=== PATIENT | male | born 1950 | race Caucasian/White ===

== ENCOUNTER 2018-01-24 18:50 | Inpatient (IN) | END 2018-03-03 13:50 | DRG 853 ==

== ENCOUNTER → 2018-09-27 | Outpatient (CLI) | payer MEDICARE ==
[~2018-09-27] MED LIST: APIX5TAB PO; FURO20TA3 PO
--- NOTE | 2018-09-28 20:00 | RADRPT ---
Vent Rate: 83 bpm RR Interval: 0 msec [place] Interval: 150 msec QRS Duration: 132 msec QT Interval: 420 msec QTC Interval: 493 msec P-R-T [place]: 36 - -2 - 49 degrees Normal sinus rhythm Right bundle branch block Abnormal ECG Electronically Signed By: Wade Aponte [id number]
== END | disposition home or self-care (01) ==
LOC: EKG 09:59
PROVIDERS: ATTEND Internal Medicine Hematology & Oncology
DX: C18.9 Malignant neoplasm of colon, unspecified (principal)
CPT/HCPCS: 71046; 93005

== ENCOUNTER 2019-02-24 12:49 | Inpatient (IN) | payer MEDICARE ==
[~2019-02-24] VITALS: Ht 160 cm; Wt 52.6 kg
[2019-02-24] MEDS ORDERED: SOD CHLORIDE 0.9% IV ONE (14:00)
[2019-02-24] MEDS ORDERED: APIX5TAB PO (14:49)
[2019-02-24] MEDS ORDERED: MORP60TA37 PO (15:01)
[2019-02-24] MEDS ORDERED: TRAZ-111 PO (15:02)
--- NOTE | 2019-02-24 15:38 | ERD ---
ER Documentation Chief Complaint Chief Complaint sob, n/v x 1 week; body pain. HPI 68-year-old male with a history of metastatic colon cancer status post recent treatment for bacteremia with left upper extremity PICC line presenting with complaints of shortness of breath for the past 1 week. He has also had associated URI symptoms with sore throat and raspy voice. He denies any fevers but he has been having chills. His shortness of breath is significantly worse with exertion. No chest pain associated with his symptoms. No cough. No hemoptysis. Denies any nausea or vomiting but does state he has had poor p.o. intake and feels dehydrated. Denies any abdominal pain at this time. ROS All systems reviewed and are negative except as per history of present illness. Medications Home Meds Reported Medications Trazodone Hcl* (Trazodone Hcl*) 50 Mg Tablet, 50 MG PO QHS, #30 TAB 02/24/19 Morphine Sulfate* (Ms Contin*) 60 Mg Tablet.sa, 60 MG PO Q8 PRN for PAIN, TAB.SA 02/24/19 Apixaban* (Eliquis*) 5 Mg Tablet, 5 MG PO BID, TAB 02/24/19 Discontinued Scripts Furosemide* (Furosemide*) 20 Mg Tablet, 20 MG PO DAILY for 14 Days, #14 TAB Prov:JADEN MADDEN MD 03/03/18 Apixaban* (Eliquis*) 5 Mg Tablet, 5 MG PO BID for 60 Days, #120 TAB Prov:JADEN MADDEN MD 03/03/18 Allergies Allergies: Coded Allergies: Penicillins (Verified Allergy, Unknown, RASH HIVES, 02/24/19) PMhx/Soc Medical and Surgical Hx: pt denies Surgical Hx History of Surgery: Yes (colon-rectial ca., Ileostomy ) Anesthesia Reaction: No Hx Neurological Disorder: No Hx Respiratory Disorders: No Hx Cardiac Disorders: No Hx Psychiatric Problems: No Hx Miscellaneous Medical Probl: Yes (Metastatic colon cancer) Hx Alcohol Use: No Hx Substance Use: Yes Hx Tobacco Use: No Smoking Status: Never smoker FmHx Family History: No diabetes Physical Exam Vitals Vital Signs Date Temp Pulse Resp B/P (MAP) Pulse Ox O2 O2 Flow FiO2 Time Delivery Rate 02/24/19 72 14 115/77 99 Room Air 16:33 (90) 02/24/19 97.2 119 20 98/53 68 98 13:13 Physical Exam Const: Chronically ill-appearing, cachectic Head: Atraumatic Eyes: Normal Conjunctiva ENT: Dry mucous membranes. Posterior oropharynx normal without erythema or exudate. Normal External Ears, Nose and Mouth. Neck: Full range of motion. No meningismus. Resp: Clear to auscultation bilaterally Cardio: Regular rate and rhythm, no murmurs Abd: Soft, non tender, non distended. Normal bowel sounds Skin: No petechiae or rashes Back: No midline or flank tenderness Ext: No cyanosis, or edema. Left upper extremity with PICC line in place, dressing clean dry and intact. Neur: Awake and alert Psych: Normal Mood and Affect Result Diagram: 02/24/19 1437 02/24/19 1437 Results 24 hrs Laboratory Tests Test 02/24/19 14:37 02/24/19 14:40 White Blood Count 5.7 10^3/ul Red Blood Count 5.09 10^6/ul Hemoglobin 15.1 g/dl Hematocrit 43.8 % Mean Corpuscular Volume 86.1 fl Mean Corpuscular Hemoglobin 29.7 pg Mean Corpuscular Hemoglobin Concent 34.5 g/dl Red Cell Distribution Width 15.5 % Platelet Count 264 10^3/UL Mean Platelet Volume 8.8 fl Immature Granulocytes % 0.500 % Neutrophils % 71.9 % Lymphocytes % 8.9 % Monocytes % 17.5 % Eosinophils % 0.9 % Basophils % 0.3 % Nucleated Red Blood Cells % 0.0 /100WBC Immature Granulocytes # 0.030 10^3/ul Neutrophils # 4.1 10^3/ul Lymphocytes # 0.5 10^3/ul Monocytes # 1.0 10^3/ul Eosinophils # 0.1 10^3/ul Basophils # 0.0 10^3/ul Nucleated Red Blood Cells # 0.0 10^3/ul Sodium Level 133 mmol/L Potassium Level 4.3 mmol/L Chloride Level 93 mmol/L Carbon Dioxide Level 22 mmol/L Anion Gap 18 Blood Urea Nitrogen 104 mg/dl Creatinine 3.73 mg/dl Est Glomerular Filtrat Rate mL/min 16 mL/min Glucose Level 128 mg/dl Calcium Level 9.9 mg/dl Total Bilirubin 0.5 mg/dl Direct Bilirubin 0.00 mg/dl Indirect Bilirubin 0.5 mg/dl Aspartate Amino Transf (AST/SGOT) 29 IU/L Alanine Aminotransferase (ALT/SGPT) 20 IU/L Alkaline Phosphatase 163 IU/L Troponin I < 0.012 ng/ml B-Type Natriuretic Peptide 302 PG/ML Total Protein 9.0 g/dl Albumin 4.9 g/dl Globulin 4.10 g/dl Albumin/Globulin Ratio 1.19 POC Venous Lactate 1.1 mmol/L Current Medications Medications Dose Sig/Braulio Start Time Status Last (Trade) Ordered Route PRN Stop Time Admin Dose Reason Admin Sodium 1,540 ml @ BOLUS X1 02/24/19 DC 02/24/19 Chloride 770 mls/hr ONCE IV 14:00 14:43 02/24/19 15:59 IV Flush 3 ml PER 02/24/19 (NS 3 ml) PROTOCOL IV 16:30 Ondansetron 4 mg Q6H PRN 02/24/19 HCl (Zofran IV 16:30 Inj) NAUSEA/VOMITI NG 650 mg Q6H PRN 02/24/19 Acetaminophen PO .PAIN 1-3 16:30 (Tylenol OR TEMP Tab) 1 tab Q6H PRN 02/24/19 Acetaminophen PO .MOD PAIN 16:30 / 4-6 Hydrocodone Bitart ([place] (5/325)) Morphine 2 mg Q4H PRN 02/24/19 Sulfate IV .SEVERE 16:30 (morphine) PAIN 7-10 Docusate 100 mg Q12H PRN 02/24/19 Sodium PO 16:30 (Colace) .CONSTIPATION Magnesium 30 ml DAILY PRN 02/24/19 Hydroxide PO 16:30 (Milk Of Mag) .CONSTIPATION 40 mg DAILY@06 02/25/19 UNV Pantoprazole IV 06:00 (Protonix Iv) Lorazepam 0.5 mg Q6H PRN 02/24/19 (Ativan) IV ANXIETY 16:30 Sodium 1,000 ml @ Q10H IV 02/24/19 Chloride 100 mls/hr 16:16 Albuterol/ 3 ml Q4H RESP 02/24/19 Ipratropium THERAPY PRN 16:30 (Duoneb) HHN SHORTNESS OF BREATH 150 ml @ DAILY IVPB 02/25/19 UNV Levofloxacin/ 100 mls/hr 09:00 Dextrose Hydralazine 10 mg Q6H PRN 02/24/19 HCl IV ELEVATED 16:30 (Apresoline) BLOOD PRESSURE 1 tab Q5M PRN 02/24/19 Nitroglycerin SL ANGINA 16:30 (Nitroglyceri n (Sl Tab) 0.4 Mg) Trazodone 50 mg QHS PO 02/24/19 HCl 21:00 (Desyrel) Apixaban 5 mg BID PO 02/24/19 UNV (Eliquis) 21:00 Ondansetron 4 mg ER BRIDGE 02/24/19 HCl (Zofran PRN IV 17:00 Inj) NAUSEA/VOMITI 02/25/19 16:59 NG 650 mg ER BRIDGE 02/24/19 Acetaminophen PRN PO 17:00 (Tylenol .MILD PAIN 02/25/19 16:59 Tab) 1-3 OR TEMP Procedures/MDM EMERGENT LABS AND DIAGNOSTIC STUDIES: Lab Results above were reviewed and interpreted by me. CBC: no anemia or evidence of infection CMP: Evidence of acute renal failure with elevated BUN and creatinine. No significant electrolyte abnormality or evidence of acidosis or alkalosis Troponin within normal limits, not indicative of cardiac ischemia Lactate within normal limits without evidence of sepsis or tissue hypoperfusion 12-lead EKG was interpreted by Wendy Zamorano MD: Normal Sinus Rhythm Normal axis Normal intervals No acute ST or T wave changes suggestive of acute ischemia or STEMI. Radiology Results as interpreted by Radiology below were reviewed by Lida Zamorano MD: Chest x-ray shows no acute abnormalities CT chest shows no acute abnormalities Initial Nursing notes reviewed. Previous Medical Records requested via the Electronic Health Record. EMERGENCY DEPARTMENT COURSE / MEDICAL DECISION MAKING: Patient is presenting with symptoms of a URI with associated shortness of breath for the past 1 week. Upon arrival, vitals were only notable for tachycardia without any significant hypotension and he was afebrile as well. Work-up is consistent with acute renal failure and likely severe dehydration. His vital signs did improve with IV hydration. At this time the etiology of his dyspnea on exertion is unclear. Patient is at higher risk for pulmonary embolism. However a CTA could not be performed given his acute renal failure. I feel the patient will likely need a VQ scan to evaluate for PE. The fact that he is on Eliquis puts him at lower risk for PE, but it still remains a possibility. There is no evidence of pneumonia at this time. I do not suspect sepsis. Patient is not stable for discharge and will be admitted for further work-up and management. Accepting Care Team: Current data and ongoing care discussed. Time: Time of admission Primary Provider: Dr. Cornelia Corcoran Diagnosis: Primary Impression: Dyspnea on exertion Additional Impressions: Acute renal failure Acute renal failure type: unspecified Qualified Codes: N17.9 - Acute kidney failure, unspecified Severe dehydration Uremia Condition: Serious SHAYY ZAMORANO MD Feb 24, 2019 15:38
[2019-02-24] MEDS ORDERED: hydrALAzine 20 MG INJ IV PRN (16:30)
[2019-02-24] MEDS ORDERED: NITROGLYCERIN (SL) 0.4 MG TAB SL PRN (16:30)
[2019-02-24] MEDS ORDERED: MAGNESIUM HYDROXIDE 30ML CUP PO PRN (16:30)
[2019-02-24] MEDS ORDERED: NACL 0.9% 3 ML SYG IV SCH (16:30)
[2019-02-24] MEDS ORDERED: DOCUSATE SODIUM 100 MG CAP PO PRN (16:30)
[2019-02-24] MEDS ORDERED: ACETAMINOPHEN 325 MG TAB PO PRN ×2 (16:30→17:00)
[2019-02-24] MEDS ORDERED: ALBUTEROL/IPRATROPIUM (NEB) 3 ML AMP HHN PRN (16:30)
[2019-02-24] MEDS ORDERED: LEVOFLOXACIN 750MG/D5W (PMX) 150 ML IVPB SCH (17:00)
[2019-02-24] MEDS ORDERED: ONDANSETRON 4 MG INJ IV PRN (17:00)
[2019-02-24] MEDS: ONDANSETRON 4 MG INJ IV PRN (17:08)
[2019-02-24 19:00] VITALS: BP 110/70; PULSE 90; RESP 20; BMI 20.5
[2019-02-24 19:21] VITALS: BP 110/73; PULSE 90; RESP 20
--- NOTE | 2019-02-24 19:39 | HP ---
DATE OF ADMISSION: 02/24/2019 IDENTIFICATION: This is a 68-year-old male. CHIEF COMPLAINT: Nausea, shortness of breath, dehydration for 3 days. HISTORY OF PRESENT ILLNESS: A 68-year-old male with past medical history of stage IV colon cancer wi th metastasis, recent bacteremia treatment with PICC in place, per patient treat him for November until January 2019, history of ileostomy, who comes in with shortness of breath. The patient also has been hav ing some nausea symptoms and weakness and dehydration. He has also had some voice hoarseness and dec reased appetite. All the symptoms have been going on for the last few days. The patient says he las t saw his hematology/oncology doctor on Tuesday in the clinic and apparently was supposed to get some labs drawn as an outpatient, but because of his weakness symptoms was unable to get those done. Per hematology/oncology team, he was also supposed to see a urology doctor because of concern of possible hydroureter on some previous scans. The patient has been status post chemotherapy, radiation treatm ent for this colon cancer. Presently, denies any upper or lower GI bleeding, no fevers or chills. N o headaches. When he came in today, he was found with elevated creatinine of 3.74. His previous kno wn creatinine from a year ago was 0.62. PAST MEDICAL HISTORY: As above. ALLERGIES: PENICILLIN. MEDICATIONS AT HOME: 1. Eliquis 5 mg b.i.d. 2. MS Contin 60 mg q.8 hours p.r.n. 3. Trazodone 50 mg at bedtime. PAST SURGICAL HISTORY: Again, he has had an end colostomy performed, sigmoid upper rectum resection with ileostomy in the past. SOCIAL HISTORY: Prior history of substance abuse, but denies any alcohol use, no smoking history. FAMILY HISTORY: Noncontributory. PHYSICAL EXAMINATION: VITAL SIGNS: T-max 97.2, pulse 119 to 72, respirations 14 to 20, blood pressure is 98 to 115 systoli c over 53 to 77 diastolic, satting at 98% on room air. GENERAL: The patient is lying in bed, appears somewhat cachectic, and ill-appearing but answering qu estions appropriately. No acute distress. HEENT: Pupils equal, round, react to light. Extraocular muscles intact. There are some dry mucous membranes. NECK: Supple, no thyromegaly. LUNGS: Clear to auscultation bilaterally. CARDIOVASCULAR: S1, S2 heard. No rubs or gallops. ABDOMEN: Soft, nontender, nondistended. Normal bowel sounds. No rebound or guarding. Ileostomy ba g in place. MUSCULOSKELETAL: He has a left upper extremity PICC line in place that appears clean, dry and intact , otherwise no lower extremity edema bilaterally. NEUROLOGIC: No focal deficits. LABORATORIES: The CBC is completely normal. Sodium 133, potassium 4.3, chloride 93, CO2 of 22, BUN of 104, creatinine 3.73, glucose 128. LFTs are normal. BNP is 302. Chest x-ray shows no active car diopulmonary disease. ASSESSMENT AND PLAN: A 68-year-old male coming in with decreased p.o. intake, dehydration, and short ness of breath and nausea for 1 week with signs of renal insufficiency with a prior history of colon cancer, stage IV with ileostomy. 1. Shortness of breath and weakness and decreased p.o. intake. Again, likely secondary to patient's renal insufficiency. We will admit the patient, check TSH, A1c, and lipid panel. We will get a valery al consult and hematology/oncology consult. We will give him aggressive IV fluid hydration. Because of shortness of breath, there is a concern of possible PE; however, he cannot have CTA performed giv en his creatinine, so we will order VQ scan to rule out PE. Get PT and OT consults as well. Put him on low-dose antibiotics for now. We will hold his Eliquis. 2. History of stage IV colon cancer. Again, we will obtain hematology/oncology consult and follow u p with their recommendations. 3. Gastrointestinal prophylaxis. PPI. Dictated By: MARQUISE RAMOS/SÁNCHEZ Conf#: [id number] DID#: [id number] CC: ODALYS GONG DO;*EndCC*
[2019-02-24 20:00] VITALS: BP 106/62; RESP 18
[2019-02-24 20:09] VITALS: Ht 160 cm; Wt 52.6 kg
[2019-02-24 20:23] VITALS: PULSE 96
[2019-02-24] MEDS: FAMOTIDINE 20 MG INJ IV SCH (20:51)
[2019-02-24] MEDS: traZODone 50 MG TAB PO SCH (20:51)
[2019-02-24] MEDS: SOD CHLORIDE 0.9% 1,000 ML IV SCH (20:51)
[2019-02-24] MEDS: morphine 2 MG INJ IV PRN (20:52)
[2019-02-24] MEDS ORDERED: APIXABAN 5 MG TABLET PO SCH (21:00)
[2019-02-24] MEDS: TAMSULOSIN (SR) 0.4 MG CAP PO SCH (21:50)
[2019-02-24] MEDS: LORAZEPAM 2 MG INJ IV PRN (23:04)
[2019-02-25] VITALS (13 sets, daily range): BP systolic 89–96; BP diastolic 53–60; PULSE 53–96; RESP 18–20
[2019-02-25] MEDS: SOD CHLORIDE 0.9% 1,000 ML IV SCH ×3 (01:32→20:36)
[2019-02-25] MEDS: ONDANSETRON 4 MG INJ IV PRN ×4 (01:56→20:55)
[2019-02-25] MEDS: FAMOTIDINE 20 MG INJ IV SCH (08:34)
[2019-02-25] MEDS: morphine 2 MG INJ IV PRN (08:37)
--- NOTE | 2019-02-25 09:08 | CONS ---
Consultation Date/Type/Reason Admit Date/Time Feb 24, 2019 at 16:31 Type of Consult Nephrology Date/Time of Note DATE: 02/25/19 TIME: 09:07 Hx of Present Illness full noted dictated thanks for the courtesy of this consultation Past Medical History Home Meds Reported Medications Trazodone Hcl* (Trazodone Hcl*) 50 Mg Tablet, 50 MG PO QHS, #30 TAB 02/24/19 Morphine Sulfate* (Ms Contin*) 60 Mg Tablet.sa, 60 MG PO Q8 PRN for PAIN, TAB.SA 02/24/19 Apixaban* (Eliquis*) 5 Mg Tablet, 5 MG PO BID, TAB 02/24/19 Discontinued Scripts Furosemide* (Furosemide*) 20 Mg Tablet, 20 MG PO DAILY for 14 Days, #14 TAB Prov:JADEN MADDEN MD 03/03/18 Apixaban* (Eliquis*) 5 Mg Tablet, 5 MG PO BID for 60 Days, #120 TAB Prov:JADEN MADDEN MD 03/03/18 Medications Current Medications IV Flush (NS 3 ml) 3 ml PER PROTOCOL IV ; Start 02/24/19 at 16:30 Ondansetron HCl (Zofran Inj) 4 mg Q6H PRN IV NAUSEA/VOMITING Last administered on 02/25/19at 08:34; Admin Dose 4 MG; Start 02/24/19 at 16:30 Acetaminophen (Tylenol Tab) 650 mg Q6H PRN PO .PAIN 1-3 OR TEMP; Start 02/24/19 at 16:30 Acetaminophen/ Hydrocodone Bitart ([place] (5/325)) 1 tab Q6H PRN PO .MOD PAIN 4- 6; Start 02/24/19 at 16:30 Morphine Sulfate (morphine) 2 mg Q4H PRN IV .SEVERE PAIN 7-10 Last administered on 02/25/19at 08:37; Admin Dose 2 MG; Start 02/24/19 at 16:30 Docusate Sodium (Colace) 100 mg Q12H PRN PO .CONSTIPATION; Start 02/24/19 at 16:30 Magnesium Hydroxide (Milk Of Mag) 30 ml DAILY PRN PO .CONSTIPATION; Start 02/24/19 at 16:30 Famotidine (Pepcid Iv) 20 mg DAILY IV Last administered on 02/25/19at 08:34; Admin Dose 20 MG; Start 02/24/19 at 17:30 Lorazepam (Ativan) 0.5 mg Q6H PRN IV ANXIETY Last administered on 02/24/19at 23:04; Admin Dose 0.5 MG; Start 02/24/19 at 16:30 Sodium Chloride 1,000 ml @ 100 mls/hr Q10H IV Last administered on 02/25/19at 08:30; Admin Dose 100 MLS/HR; Start 02/24/19 at 16:16 Albuterol/ Ipratropium (Duoneb) 3 ml Q4H RESP THERAPY PRN HHN SHORTNESS OF BREATH; Start 02/24/19 at 16:30 Hydralazine HCl (Apresoline) 10 mg Q6H PRN IV ELEVATED BLOOD PRESSURE; Start 02/24/19 at 16:30 Nitroglycerin (Nitroglycerin (Sl Tab) 0.4 Mg) 1 tab Q5M PRN SL ANGINA; Start 02/24/19 at 16:30 Trazodone HCl (Desyrel) 50 mg QHS PO Last administered on 02/24/19at 20:51; Admin Dose 50 MG; Start 02/24/19 at 21:00 Levofloxacin/ Dextrose 100 ml @ 100 mls/hr Q48H IVPB ; Start 02/26/19 at 17:00 Tamsulosin HCl (Flomax) 0.4 mg HS PO Last administered on 02/24/19at 21:50; Admin Dose 0.4 MG; Start 02/24/19 at 22:00 Allergies: Coded Allergies: Penicillins (Verified Allergy, Unknown, RASH HIVES, 02/24/19) Past Surgical History Past Surgical Hx: other Social History Smoking Status: Never smoker Exam/Review of Systems Vital Signs Vitals Vital Signs Date Temp Pulse Resp B/P (MAP) Pulse Ox O2 O2 Flow FiO2 Time Delivery Rate 02/25/19 98.9 77 20 96/58 (71) 98 07:22 02/25/19 Room Air 04:00 Intake and Output 02/24/19 02/24/19 02/25/19 1515:00 23:00 07:00 IntakeIntake Total 1600 ml BalanceBalance 1600 ml Labs Result Diagram: 02/25/19 0554 02/25/19 0554 Results 24hrs Laboratory Tests Test 02/24/19 14:37 02/24/19 14:40 02/24/19 16:25 02/24/19 19:47 White Blood Count 5.7 # Red Blood Count 5.09 # Hemoglobin 15.1 # Hematocrit 43.8 # Mean Corpuscular 86.1 Volume Mean Corpuscular 29.7 # Hemoglobin Mean Corpuscular 34.5 Hemoglobin Concent Red Cell 15.5 H Distribution Width Platelet Count 264 # Mean Platelet Volume 8.8 Immature 0.500 H Granulocytes % Neutrophils % 71.9 Lymphocytes % 8.9 L Monocytes % 17.5 H Eosinophils % 0.9 Basophils % 0.3 Nucleated Red Blood 0.0 Cells % Immature 0.030 Granulocytes # Neutrophils # 4.1 Lymphocytes # 0.5 L Monocytes # 1.0 H Eosinophils # 0.1 Basophils # 0.0 Nucleated Red Blood 0.0 Cells # Sodium Level 133 L Potassium Level 4.3 Chloride Level 93 L Carbon Dioxide Level 22 Anion Gap 18 H Blood Urea Nitrogen 104 H Creatinine 3.73 H Est Glomerular 16 L Filtrat Rate mL/min Glucose Level 128 Calcium Level 9.9 Total Bilirubin 0.5 Direct Bilirubin 0.00 Indirect Bilirubin 0.5 Aspartate Amino 29 Transf (AST/SGOT) Alanine 20 Aminotransferase (AL T/SGPT) Alkaline Phosphatase 163 H Troponin I < 0.012 B-Type Natriuretic 302 H Peptide Total Protein 9.0 H Albumin 4.9 Globulin 4.10 H Albumin/Globulin 1.19 Ratio POC Venous Lactate 1.1 Lactic Acid Level 1.1 0.8 Test 02/25/19 05:54 White Blood Count 4.9 Red Blood Count 4.13 L Hemoglobin 12.1 L Hematocrit 35.6 L Mean Corpuscular 86.2 Volume Mean Corpuscular 29.3 Hemoglobin Mean Corpuscular 34.0 Hemoglobin Concent Red Cell 15.5 H Distribution Width Platelet Count 198 # Mean Platelet Volume 8.8 Immature 0.800 H Granulocytes % Neutrophils % 67.8 Lymphocytes % 8.4 L Monocytes % 20.1 H Eosinophils % 2.5 Basophils % 0.4 Nucleated Red Blood 0.0 Cells % Immature 0.040 H Granulocytes # Neutrophils # 3.3 Lymphocytes # 0.4 L Monocytes # 1.0 H Eosinophils # 0.1 Basophils # 0.0 Nucleated Red Blood 0.0 Cells # Sodium Level 133 L Potassium Level 3.8 Chloride Level 96 L Carbon Dioxide Level 24 Anion Gap 13 Blood Urea Nitrogen 92 H Creatinine 2.55 #H Est Glomerular 25 L Filtrat Rate mL/min Glucose Level 110 Hemoglobin A1c 5.3 Calcium Level 8.6 Phosphorus Level 3.6 Magnesium Level 2.1 Triglycerides Level 129 Cholesterol Level 114 LDL Cholesterol, 53 Calculated HDL Cholesterol 35 Cholesterol/HDL 3.2 Ratio Thyroid Stimulating Pending Hormone (TSH) Medications Medications Current Medications IV Flush (NS 3 ml) 3 ml PER PROTOCOL IV ; Start 02/24/19 at 16:30 Ondansetron HCl (Zofran Inj) 4 mg Q6H PRN IV NAUSEA/VOMITING Last administered on 02/25/19 08:34; Admin Dose 4 MG; Start 02/24/19 at 16:30 Acetaminophen (Tylenol Tab) 650 mg Q6H PRN PO .PAIN 1-3 OR TEMP; Start 02/24/19 at 16:30 Acetaminophen/ Hydrocodone Bitart ([place] (5/325)) 1 tab Q6H PRN PO .MOD PAIN 4- 6; Start 02/24/19 at 16:30 Morphine Sulfate (morphine) 2 mg Q4H PRN IV .SEVERE PAIN 7-10 Last administered on 02/25/19at 08:37; Admin Dose 2 MG; Start 02/24/19 at 16:30 Docusate Sodium (Colace) 100 mg Q12H PRN PO .CONSTIPATION; Start 02/24/19 at 16:30 Magnesium Hydroxide (Milk Of Mag) 30 ml DAILY PRN PO .CONSTIPATION; Start 02/24/19 at 16:30 Famotidine (Pepcid Iv) 20 mg DAILY IV Last administered on 02/25/19at 08:34; Admin Dose 20 MG; Start 02/24/19 at 17:30 Lorazepam (Ativan) 0.5 mg Q6H PRN IV ANXIETY Last administered on 02/24/19at 23:04; Admin Dose 0.5 MG; Start 02/24/19 at 16:30 Sodium Chloride 1,000 ml @ 100 mls/hr Q10H IV Last administered on 02/25/19at 08:30; Admin Dose 100 MLS/HR; Start 02/24/19 at 16:16 Albuterol/ Ipratropium (Duoneb) 3 ml Q4H RESP THERAPY PRN HHN SHORTNESS OF BREATH; Start 02/24/19 at 16:30 Hydralazine HCl (Apresoline) 10 mg Q6H PRN IV ELEVATED BLOOD PRESSURE; Start 02/24/19 at 16:30 Nitroglycerin (Nitroglycerin (Sl Tab) 0.4 Mg) 1 tab Q5M PRN SL ANGINA; Start 02/24/19 at 16:30 Trazodone HCl (Desyrel) 50 mg QHS PO Last administered on 02/24/19at 20:51; Admin Dose 50 MG; Start 02/24/19 at 21:00 Levofloxacin/ Dextrose 100 ml @ 100 mls/hr Q48H IVPB ; Start 02/26/19 at 17:00 Tamsulosin HCl (Flomax) 0.4 mg HS PO Last administered on 02/24/19at 21:50; Admin Dose 0.4 MG; Start 02/24/19 at 22:00 JOVI PAYNE MD Feb 25, 2019 09:08
--- NOTE | 2019-02-25 11:51 | PN ---
Date/Time of Note Date/Time of Note DATE: 02/25/19 TIME: 11:44 Assessment/Plan VTE Prophylaxis Risk score (from Ns)>0 risk: 5 SCD applied (from Nsg): Yes Pharmacological prophylaxis: other Lines/Catheters IV Catheter Type (from Nrsg): PICC Line Central line still needed: Yes Urinary Cath still in place: No Assessment/Plan Hospital Course S: O: VS - see below PHYSICAL EXAMINATION: GENERAL: lying in bed, appears somewhat cachectic, and ill-appearing but answe ring questions appropriately. HEENT: Pupils equal, round, react to light. Extraocular muscles intact. NECK: Supple, no thyromegaly. LUNGS: Clear to auscultation bilaterally. CARDIOVASCULAR: S1, S2 heard. No rubs or gallops. ABDOMEN: Soft, nontender, nondistended. Normal bowel sounds. No rebound or guarding. Ileostomy bag in place. MUSCULOSKELETAL: He has a left upper extremity PICC line in place that appears clean, dry and intact, otherwise no lower extremity edema bilaterally. NEUROLOGIC: No focal deficits. ASSESSMENT AND PLAN: 68-year-old male coming in with decreased p.o. intake, dehydration, and shortness of breath and nausea for 1 week with signs of renal insufficiency with a prior history of colon cancer, stage IV with ileostomy. 1. Shortness of breath and weakness and decreased p.o. intake-slowly improving, again, likely secondary to patient's renal insufficiency: creatinine is trending down. Seen by renal team. -Continue for now IV fluid hydration, cautious use of opiate medications can slightly low blood pressure but heart rate is been stable. -Follow-up results of VQ scan: because of shortness of breath, there is a concern of possible PE -Follow further recommendations from renal team -Also awaiting consult from hematology oncology team has been treating patient as an outpatient for his colon cancer 2. History of stage IV colon cancer. Again, follow-up further recommendations from hematology/oncology consult: They have been treating him as an outpatient with chemotherapy and radiation -Monitor drainage from ileostomy bag 3. Gastrointestinal prophylaxis. PPI. Result Diagram: 02/25/19 0554 02/25/19 0554 Results 24hrs Laboratory Tests Test 02/24/19 14:37 02/24/19 14:40 02/24/19 16:25 02/24/19 19:47 White Blood Count 5.7 # Red Blood Count 5.09 # Hemoglobin 15.1 # Hematocrit 43.8 # Mean Corpuscular 86.1 Volume Mean Corpuscular 29.7 # Hemoglobin Mean Corpuscular 34.5 Hemoglobin Concent Red Cell 15.5 H Distribution Width Platelet Count 264 # Mean Platelet Volume 8.8 Immature 0.500 H Granulocytes % Neutrophils % 71.9 Lymphocytes % 8.9 L Monocytes % 17.5 H Eosinophils % 0.9 Basophils % 0.3 Nucleated Red Blood 0.0 Cells % Immature 0.030 Granulocytes # Neutrophils # 4.1 Lymphocytes # 0.5 L Monocytes # 1.0 H Eosinophils # 0.1 Basophils # 0.0 Nucleated Red Blood 0.0 Cells # Sodium Level 133 L Potassium Level 4.3 Chloride Level 93 L Carbon Dioxide Level 22 Anion Gap 18 H Blood Urea Nitrogen 104 H Creatinine 3.73 H Est Glomerular 16 L Filtrat Rate mL/min Glucose Level 128 Calcium Level 9.9 Total Bilirubin 0.5 Direct Bilirubin 0.00 Indirect Bilirubin 0.5 Aspartate Amino 29 Transf (AST/SGOT) Alanine 20 Aminotransferase (AL T/SGPT) Alkaline Phosphatase 163 H Troponin I < 0.012 B-Type Natriuretic 302 H Peptide Total Protein 9.0 H Albumin 4.9 Globulin 4.10 H Albumin/Globulin 1.19 Ratio POC Venous Lactate 1.1 Lactic Acid Level 1.1 0.8 Test 02/25/19 05:54 02/25/19 10:00 White Blood Count 4.9 Red Blood Count 4.13 L Hemoglobin 12.1 L Hematocrit 35.6 L Mean Corpuscular 86.2 Volume Mean Corpuscular 29.3 Hemoglobin Mean Corpuscular 34.0 Hemoglobin Concent Red Cell 15.5 H Distribution Width Platelet Count 198 # Mean Platelet Volume 8.8 Immature 0.800 H Granulocytes % Neutrophils % 67.8 Lymphocytes % 8.4 L Monocytes % 20.1 H Eosinophils % 2.5 Basophils % 0.4 Nucleated Red Blood 0.0 Cells % Immature 0.040 H Granulocytes # Neutrophils # 3.3 Lymphocytes # 0.4 L Monocytes # 1.0 H Eosinophils # 0.1 Basophils # 0.0 Nucleated Red Blood 0.0 Cells # Sodium Level 133 L Potassium Level 3.8 Chloride Level 96 L Carbon Dioxide Level 24 Anion Gap 13 Blood Urea Nitrogen 92 H Creatinine 2.55 #H Est Glomerular 25 L Filtrat Rate mL/min Glucose Level 110 Hemoglobin A1c 5.3 Calcium Level 8.6 Phosphorus Level 3.6 Magnesium Level 2.1 Triglycerides Level 129 Cholesterol Level 114 LDL Cholesterol, 53 Calculated HDL Cholesterol 35 Cholesterol/HDL 3.2 Ratio Thyroid Stimulating Pending Hormone (TSH) Urine Color YELLOW Urine Clarity CLEAR Urine pH 5.0 Urine Specific 1.016 [place] Urine Ketones NEGATIVE Urine Nitrite NEGATIVE Urine Bilirubin NEGATIVE Urine Urobilinogen NEGATIVE Urine Leukocyte NEGATIVE Esterase Urine Microscopic 2 RBC Urine Microscopic 3 WBC Urine Hemoglobin 2+ H Urine Random 126.00 Creatinine Urine Random Sodium < 13 L Urine Glucose NEGATIVE Urine Total Protein NEGATIVE Exam/Review of Systems Exam Vitals Vital Signs Date Temp Pulse Resp B/P (MAP) Pulse Ox O2 O2 Flow FiO2 Time Delivery Rate 02/25/19 98.3 74 20 89/54 (66) 100 11:29 02/25/19 Room Air 04:00 Intake and Output 02/24/19 02/24/19 02/25/19 1515:00 23:00 07:00 IntakeIntake Total 1600 ml BalanceBalance 1600 ml Results Results 24hrs Laboratory Tests Test 02/24/19 14:37 02/24/19 14:40 02/24/19 16:25 02/24/19 19:47 White Blood Count 5.7 # Red Blood Count 5.09 # Hemoglobin 15.1 # Hematocrit 43.8 # Mean Corpuscular 86.1 Volume Mean Corpuscular 29.7 # Hemoglobin Mean Corpuscular 34.5 Hemoglobin Concent Red Cell 15.5 H Distribution Width Platelet Count 264 # Mean Platelet Volume 8.8 Immature 0.500 H Granulocytes % Neutrophils % 71.9 Lymphocytes % 8.9 L Monocytes % 17.5 H Eosinophils % 0.9 Basophils % 0.3 Nucleated Red Blood 0.0 Cells % Immature 0.030 Granulocytes # Neutrophils # 4.1 Lymphocytes # 0.5 L Monocytes # 1.0 H Eosinophils # 0.1 Basophils # 0.0 Nucleated Red Blood 0.0 Cells # Sodium Level 133 L Potassium Level 4.3 Chloride Level 93 L Carbon Dioxide Level 22 Anion Gap 18 H Blood Urea Nitrogen 104 H Creatinine 3.73 H Est Glomerular 16 L Filtrat Rate mL/min Glucose Level 128 Calcium Level 9.9 Total Bilirubin 0.5 Direct Bilirubin 0.00 Indirect Bilirubin 0.5 Aspartate Amino 29 Transf (AST/SGOT) Alanine 20 Aminotransferase (AL T/SGPT) Alkaline Phosphatase 163 H Troponin I < 0.012 B-Type Natriuretic 302 H Peptide Total Protein 9.0 H Albumin 4.9 Globulin 4.10 H Albumin/Globulin 1.19 Ratio POC Venous Lactate 1.1 Lactic Acid Level 1.1 0.8 Test 02/25/19 05:54 02/25/19 10:00 White Blood Count 4.9 Red Blood Count 4.13 L Hemoglobin 12.1 L Hematocrit 35.6 L Mean Corpuscular 86.2 Volume Mean Corpuscular 29.3 Hemoglobin Mean Corpuscular 34.0 Hemoglobin Concent Red Cell 15.5 H Distribution Width Platelet Count 198 # Mean Platelet Volume 8.8 Immature 0.800 H Granulocytes % Neutrophils % 67.8 Lymphocytes % 8.4 L Monocytes % 20.1 H Eosinophils % 2.5 Basophils % 0.4 Nucleated Red Blood 0.0 Cells % Immature 0.040 H Granulocytes # Neutrophils # 3.3 Lymphocytes # 0.4 L Monocytes # 1.0 H Eosinophils # 0.1 Basophils # 0.0 Nucleated Red Blood 0.0 Cells # Sodium Level 133 L Potassium Level 3.8 Chloride Level 96 L Carbon Dioxide Level 24 Anion Gap 13 Blood Urea Nitrogen 92 H Creatinine 2.55 #H Est Glomerular 25 L Filtrat Rate mL/min Glucose Level 110 Hemoglobin A1c 5.3 Calcium Level 8.6 Phosphorus Level 3.6 Magnesium Level 2.1 Triglycerides Level 129 Cholesterol Level 114 LDL Cholesterol, 53 Calculated HDL Cholesterol 35 Cholesterol/HDL 3.2 Ratio Thyroid Stimulating Pending Hormone (TSH) Urine Color YELLOW Urine Clarity CLEAR Urine pH 5.0 Urine Specific 1.016 [place] Urine Ketones NEGATIVE Urine Nitrite NEGATIVE Urine Bilirubin NEGATIVE Urine Urobilinogen NEGATIVE Urine Leukocyte NEGATIVE Esterase Urine Microscopic 2 RBC Urine Microscopic 3 WBC Urine Hemoglobin 2+ H Urine Random 126.00 Creatinine Urine Random Sodium < 13 L Urine Glucose NEGATIVE Urine Total Protein NEGATIVE Medications Medication Current Medications IV Flush (NS 3 ml) 3 ml PER PROTOCOL IV ; Start 02/24/19 at 16:30 Ondansetron HCl (Zofran Inj) 4 mg Q6H PRN IV NAUSEA/VOMITING Last administered on 02/25/19at 08:34; Admin Dose 4 MG; Start 02/24/19 at 16:30 Acetaminophen (Tylenol Tab) 650 mg Q6H PRN PO .PAIN 1-3 OR TEMP; Start 02/24/19 at 16:30 Acetaminophen/ Hydrocodone Bitart ([place] (5/325)) 1 tab Q6H PRN PO .MOD PAIN 4- 6; Start 02/24/19 at 16:30 Morphine Sulfate (morphine) 2 mg Q4H PRN IV .SEVERE PAIN 7-10 Last administered on 02/25/19at 08:37; Admin Dose 2 MG; Start 02/24/19 at 16:30 Docusate Sodium (Colace) 100 mg Q12H PRN PO .CONSTIPATION; Start 02/24/19 at 16:30 Magnesium Hydroxide (Milk Of Mag) 30 ml DAILY PRN PO .CONSTIPATION; Start 02/24/19 at 16:30 Famotidine (Pepcid Iv) 20 mg DAILY IV Last administered on 02/25/19at 08:34; Admin Dose 20 MG; Start 02/24/19 at 17:30 Lorazepam (Ativan) 0.5 mg Q6H PRN IV ANXIETY Last administered on 02/24/19at 23:04; Admin Dose 0.5 MG; Start 02/24/19 at 16:30 Sodium Chloride 1,000 ml @ 100 mls/hr Q10H IV Last administered on 02/25/19at 08:30; Admin Dose 100 MLS/HR; Start 02/24/19 at 16:16 Albuterol/ Ipratropium (Duoneb) 3 ml Q4H RESP THERAPY PRN HHN SHORTNESS OF BREATH; Start 02/24/19 at 16:30 Hydralazine HCl (Apresoline) 10 mg Q6H PRN IV ELEVATED BLOOD PRESSURE; Start 02/24/19 at 16:30 Nitroglycerin (Nitroglycerin (Sl Tab) 0.4 Mg) 1 tab Q5M PRN SL ANGINA; Start 02/24/19 at 16:30 Trazodone HCl (Desyrel) 50 mg QHS PO Last administered on 02/24/19at 20:51; Admin Dose 50 MG; Start 02/24/19 at 21:00 Levofloxacin/ Dextrose 100 ml @ 100 mls/hr Q48H IVPB ; Start 02/26/19 at 17:00 Tamsulosin HCl (Flomax) 0.4 mg HS PO Last administered on 02/24/19at 21:50; Admin Dose 0.4 MG; Start 6/22/19 at 22:00 MARQUISE MARQUEZ Feb 25, 2019 11:50
[2019-02-25] MEDS ORDERED: morphine (ER) 30 MG TAB PO PRN (12:00)
[2019-02-25] MEDS: morphine (ER) 30 MG TAB PO SCH ×2 (14:34→20:55)
--- NOTE | 2019-02-25 16:46 | CONS ---
Assessment/Plan Assessment/Plan Assessment/Plan (Daily) 68 yo M with PMH stage IV rectal cancer with a liver met s/p resection of primary and liver metastatectomy now on maintenance XELOX with avastin admitted for weakness, dehydration, shortness of breath and renal failure. # Stage IV rectal cancer with mets to the liver s/p resection -At this point in time hold chemotherapy for now and wait until patient's renal function improves. -CT scan shows some bronchiectasis but no evidence of recurrent cancer. -XELOX with avastin should be causing renal failure and likely due to patient being weak with dehydration. -Counts are stable which argues against chemo toxicity. -Dr. Houser will plan on when to give the next chemotherapy when patient stable. # Renal failure -Appreciate nephrology recs. -Creatinine improving with fluids. -No hydroureters noted on US. Thank you to Dr. Locke for allowing us to participate in the care of this patient. Consultation Date/Type/Reason Admit Date/Time Feb 24, 2019 at 16:31 Date of Consultation: Feb 25, 2019 Type of Consult hematology/oncology Reason for Consultation stage IV rectal cancer with mets to liver with dehydration and possible upper respiratory infection Date/Time of Note DATE: 02/25/19 TIME: 16:32 Hx of Present Illness 68 yo M with PMH stage IV rectal cancer with a liver met s/p resection of primary and liver met which was resected as well. Patient had complications of perforation of his colon along with infection and required pressor support in . Patient has been on maintenance chemotherapy with Xelox with avastin. He had been tolerating well until a week ago when he started to have some weakness with dehydration. Dr. Houser saw the patient on Tuesday in which she noted that he was dehydrated and wanted him to get labs but he was too weak to get them. Patient is now admitted for acute renal failure with elevated creatinine. Patient supposedly had hydronephrosis in the outpatient setting and was referred to urologist for further workup. US of kidneys did not show hydroureters. CT showed: 1. Bilateral bronchiectasis. No focal air space disease/consolidation. No pleural effusions. Airways are otherwise patent. 2. Atherosclerosis aorta and mild aneurysmal dilatation of the ascending aorta. 3. Mild bilateral bronchiectasis. No focal air space disease/consolidation. No evidence of pleural effusions. 4. Distended gallbladder, containing air and intrahepatic pneumobilia and CBD pneumobilia. Findings are probably iatrogenic related. A common bile duct stent is noted. CT Chest showed: PMH: as above PSxH: as above. SH: Prior history of substance abuse. Denies any history of alcohol or smoking history. FH: Denies any family history of blood disorders or cancers. Meds: see list All: PCN Constitutional: improved Eyes: no complaints ENT: no complaints, sore throat Respiratory: shortness of breath Cardiovascular: no complaints Gastrointestinal: no complaints Genitourinary: no complaints Musculoskeletal: no complaints Skin: no complaints Neurologic: no complaints Endocrine: no complaints Lymphatic: no complaints Psychological: no complaints Immunologic: no complaints Past Medical History Home Meds Reported Medications Trazodone Hcl* (Trazodone Hcl*) 50 Mg Tablet, 50 MG PO QHS, #30 TAB 02/24/19 Morphine Sulfate* (Ms Contin*) 60 Mg Tablet.sa, 60 MG PO Q8 PRN for PAIN, TAB.SA 02/24/19 Apixaban* (Eliquis*) 5 Mg Tablet, 5 MG PO BID, TAB 02/24/19 Discontinued Scripts Furosemide* (Furosemide*) 20 Mg Tablet, 20 MG PO DAILY for 14 Days, #14 TAB Prov:JADEN MADDEN MD 03/03/18 Apixaban* (Eliquis*) 5 Mg Tablet, 5 MG PO BID for 60 Days, #120 TAB Prov:JADEN MADDEN MD 03/03/18 Medications Current Medications IV Flush (NS 3 ml) 3 ml PER PROTOCOL IV ; Start 02/24/19 at 16:30 Ondansetron HCl (Zofran Inj) 4 mg Q6H PRN IV NAUSEA/VOMITING Last administered on 02/25/19at 16:23; Admin Dose 4 MG; Start 02/24/19 at 16:30 Acetaminophen (Tylenol Tab) 650 mg Q6H PRN PO .PAIN 1-3 OR TEMP; Start 02/24/19 at 16:30 Acetaminophen/ Hydrocodone Bitart ([place] (5/325)) 1 tab Q6H PRN PO .MOD PAIN 4- 6; Start 02/24/19 at 16:30 Docusate Sodium (Colace) 100 mg Q12H PRN PO .CONSTIPATION; Start 02/24/19 at 16:30 Magnesium Hydroxide (Milk Of Mag) 30 ml DAILY PRN PO .CONSTIPATION; Start 02/24/19 at 16:30 Famotidine (Pepcid Iv) 20 mg DAILY IV Last administered on 02/25/19at 08:34; Admin Dose 20 MG; Start 02/24/19 at 17:30 Lorazepam (Ativan) 0.5 mg Q6H PRN IV ANXIETY Last administered on 02/24/19at 23:04; Admin Dose 0.5 MG; Start 02/24/19 at 16:30 Sodium Chloride 1,000 ml @ 125 mls/hr Q8H IV Last administered on 02/25/19at 08:30; Admin Dose 100 MLS/HR; Start 02/24/19 at 16:16 Albuterol/ Ipratropium (Duoneb) 3 ml Q4H RESP THERAPY PRN HHN SHORTNESS OF BREATH; Start 02/24/19 at 16:30 Hydralazine HCl (Apresoline) 10 mg Q6H PRN IV ELEVATED BLOOD PRESSURE; Start 02/24/19 at 16:30 Nitroglycerin (Nitroglycerin (Sl Tab) 0.4 Mg) 1 tab Q5M PRN SL ANGINA; Start 02/24/19 at 16:30 Trazodone HCl (Desyrel) 50 mg QHS PO Last administered on 02/24/19at 20:51; Admin Dose 50 MG; Start 02/24/19 at 21:00 Levofloxacin/ Dextrose 100 ml @ 100 mls/hr Q48H IVPB ; Start 02/26/19 at 17:00 Tamsulosin HCl (Flomax) 0.4 mg HS PO Last administered on 02/24/19at 21:50; Admin Dose 0.4 MG; Start 02/24/19 at 22:00 Morphine Sulfate (Ms Contin (Er)) 60 mg BID PO Last administered on 02/25/19at 14:34; Admin Dose 60 MG; Start 02/25/19 at 13:00 Allergies: Coded Allergies: Penicillins (Verified Allergy, Unknown, RASH HIVES, 02/24/19) Past Surgical History Past Surgical Hx: other Social History Smoking Status: Never smoker Exam/Review of Systems Exam Vitals Vital Signs Date Temp Pulse Resp B/P (MAP) Pulse Ox O2 O2 Flow FiO2 Time Delivery Rate 02/25/19 98.3 76 20 90/59 (69) 99 15:52 02/25/19 Room Air 04:00 Intake and Output 02/24/19 02/24/19 02/25/19 1515:00 23:00 07:00 IntakeIntake Total 1600 ml BalanceBalance 1600 ml Constitutional: alert, oriented, frail Psych: no complaints Head: normocephalic, atraumatic Eyes: nl conjunctiva, EOMI ENMT: mucosa pink and moist Neck: supple, non-tender Respiratory: clear to auscultation Cardiovascular: regular rate and rhythm, nl pulses Gastrointestinal: soft, nl liver, spleen, non-tender Musculoskeletal: nl extremities to inspection Neurological: nl mental status Skin: nl turgor Lymph: nl lymph nodes Results Result Diagram: 02/25/19 0554 02/25/19 0554 Results 24hrs Laboratory Tests Test 02/24/19 19:47 02/25/19 05:54 02/25/19 10:00 Lactic Acid Level 0.8 White Blood Count 4.9 Red Blood Count 4.13 L Hemoglobin 12.1 L Hematocrit 35.6 L Mean Corpuscular Volume 86.2 Mean Corpuscular Hemoglobin 29.3 Mean Corpuscular Hemoglobin Concent 34.0 Red Cell Distribution Width 15.5 H Platelet Count 198 # Mean Platelet Volume 8.8 Immature Granulocytes % 0.800 H Neutrophils % 67.8 Lymphocytes % 8.4 L Monocytes % 20.1 H Eosinophils % 2.5 Basophils % 0.4 Nucleated Red Blood Cells % 0.0 Immature Granulocytes # 0.040 H Neutrophils # 3.3 Lymphocytes # 0.4 L Monocytes # 1.0 H Eosinophils # 0.1 Basophils # 0.0 Nucleated Red Blood Cells # 0.0 Sodium Level 133 L Potassium Level 3.8 Chloride Level 96 L Carbon Dioxide Level 24 Anion Gap 13 Blood Urea Nitrogen 92 H Creatinine 2.55 #H Est Glomerular Filtrat Rate mL/min 25 L Glucose Level 110 Hemoglobin A1c 5.3 Calcium Level 8.6 Phosphorus Level 3.6 Magnesium Level 2.1 Triglycerides Level 129 Cholesterol Level 114 LDL Cholesterol, Calculated 53 HDL Cholesterol 35 Cholesterol/HDL Ratio 3.2 Thyroid Stimulating Hormone (TSH) 2.480 Urine Color YELLOW Urine Clarity CLEAR Urine pH 5.0 Urine Specific [place] 1.016 Urine Ketones NEGATIVE Urine Nitrite NEGATIVE Urine Bilirubin NEGATIVE Urine Urobilinogen NEGATIVE Urine Leukocyte Esterase NEGATIVE Urine Microscopic RBC 2 Urine Microscopic WBC 3 Urine Hemoglobin 2+ H Urine Random Creatinine 126.00 Urine Random Sodium < 13 L Urine Glucose NEGATIVE Urine Total Protein NEGATIVE Medications Medication Current Medications IV Flush (NS 3 ml) 3 ml PER PROTOCOL IV ; Start 02/24/19 at 16:30 Ondansetron HCl (Zofran Inj) 4 mg Q6H PRN IV NAUSEA/VOMITING Last administered on 02/25/19at 16:23; Admin Dose 4 MG; Start 02/24/19 at 16:30 Acetaminophen (Tylenol Tab) 650 mg Q6H PRN PO .PAIN 1-3 OR TEMP; Start 02/24/19 at 16:30 Acetaminophen/ Hydrocodone Bitart ([place] (5/325)) 1 tab Q6H PRN PO .MOD PAIN 4- 6; Start 02/24/19 at 16:30 Docusate Sodium (Colace) 100 mg Q12H PRN PO .CONSTIPATION; Start 02/24/19 at 16:30 Magnesium Hydroxide (Milk Of Mag) 30 ml DAILY PRN PO .CONSTIPATION; Start 02/24/19 at 16:30 Famotidine (Pepcid Iv) 20 mg DAILY IV Last administered on 02/25/19at 08:34; Admin Dose 20 MG; Start 02/24/19 at 17:30 Lorazepam (Ativan) 0.5 mg Q6H PRN IV ANXIETY Last administered on 02/24/19at 23:04; Admin Dose 0.5 MG; Start 02/24/19 at 16:30 Sodium Chloride 1,000 ml @ 125 mls/hr Q8H IV Last administered on 02/25/19at 08:30; Admin Dose 100 MLS/HR; Start 02/24/19 at 16:16 Albuterol/ Ipratropium (Duoneb) 3 ml Q4H RESP THERAPY PRN HHN SHORTNESS OF BR EATH; Start 02/24/19 at 16:30 Hydralazine HCl (Apresoline) 10 mg Q6H PRN IV ELEVATED BLOOD PRESSURE; Start 02/24/19 at 16:30 Nitroglycerin (Nitroglycerin (Sl Tab) 0.4 Mg) 1 tab Q5M PRN SL ANGINA; Start 02/24/19 at 16:30 Trazodone HCl (Desyrel) 50 mg QHS PO Last administered on 02/24/19at 20:51; Ad min Dose 50 MG; Start 02/24/19 at 21:00 Levofloxacin/ Dextrose 100 ml @ 100 mls/hr Q48H IVPB ; Start 02/26/19 at 17:00 Tamsulosin HCl (Flomax) 0.4 mg HS PO Last administered on 02/24/19at 21:50; Admi n Dose 0.4 MG; Start 02/24/19 at 22:00 Morphine Sulfate (Ms Contin (Er)) 60 mg BID PO Last administered on 02/25/19at 14:34; Admin Dose 60 MG; Start 02/25/19 at 13:00 RORY UP DO Feb 25, 2019 16:46
[2019-02-25] MEDS: TAMSULOSIN (SR) 0.4 MG CAP PO SCH (20:54)
[2019-02-25] MEDS: traZODone 50 MG TAB PO SCH (20:54)
[2019-02-25] MEDS ORDERED: TAMSULOSIN (SR) 0.4 MG CAP PO SCH (21:00)
[2019-02-26] VITALS (11 sets, daily range): BP systolic 86–101; BP diastolic 50–61; PULSE 67–91; RESP 17–20
--- NOTE | 2019-02-26 02:54 | CONS ---
DATE OF ADMISSION: 02/24/2019 DATE OF CONSULTATION: HISTORY OF PRESENT ILLNESS: The patient is a 68-year-old gentleman with a past medical history of st age IV rectal cancer with liver mets, status post resection of primary liver with complication of per foration of the colon. The patient has been on maintenance chemotherapy with both Xelox and Avastin. The patient was noted to have acute renal failure by his oncologist, transferred to the hospital, a nd started on IV fluids with continued good urine output since admission. The patient is not on any NSAIDs or SAHRA inhibitors at home. Denies dysuria or hematuria, noted to have dehydration personally and a decrease in his urine output. PAST MEDICAL HISTORY: Significant for the above. MEDICATIONS AT HOME: Eliquis, MS-Contin, and Trazodone. ALLERGIES: PENICILLIN. SOCIAL HISTORY: Does not smoke, drink or do drugs. FAMILY HISTORY: History of kidney disease. REVIEW OF SYSTEMS: A 14-point review of systems attempted and negative. PHYSICAL EXAMINATION: VITAL SIGNS: Temperature 99, blood pressure of 96/68. HEENT: Head is normocephalic. Pupils are equal and reactive to light. Oropharynx is moist. NECK: Supple. HEART: Regular rate and rhythm. LUNGS: Clear to auscultation anteriorly. ABDOMEN: Soft, nontender, nondistended. Normoactive bowel sounds. EXTREMITIES: No clubbing, cyanosis or edema. SKIN: Shows no rashes. BACK: No CVA tenderness. LABORATORY EVALUATION: White count 4.9, hemoglobin 12.1, hematocrit 35.2, sodium 133, potassium 3.8, BUN 92, creatinine 2.55. UA is reviewed on microscopy. Chest x-ray reviewed with the radiologist. Creatinine on admission was 3.73. IMPRESSION AND PLAN: 1. Acute kidney injury, nonoliguric, nonproteinuric, likely vasomotor nephropathy/hemodynamic effect s/prerenal azotemia, currently improving at a fairly rapid pace. Start by checking urine studies, ul trasound to confirm obstructive uropathy. Avoid nephrotoxins. All medications are dosed appropriate ly. Agree with current rate of IV fluids. Watch for diuretic phase of acute kidney injury with elec trolyte wasting. 2. Stage IV colon cancer. Hematology/Oncology followup. 3. Dyspnea. VQ scan was ordered, likely low probability. 4. History of colon cancer complication requiring ileostomy, bag is in place. Dictated By: JOVI PAYNE MD DF/SÁNCHEZ Conf#: [id number] DID#: [id number] CC: MARQUISE MARQUEZ;*EndCC*
[2019-02-26] MEDS: SOD CHLORIDE 0.9% 1,000 ML IV SCH ×3 (04:41→20:08)
[2019-02-26] MEDS: HYDROCODONE/APAP (5/325) TAB PO PRN ×2 (05:37→21:32)
[2019-02-26] MEDS: FAMOTIDINE 20 MG INJ IV SCH (08:49)
[2019-02-26] MEDS: morphine (ER) 30 MG TAB PO SCH ×2 (08:49→20:05)
--- NOTE | 2019-02-26 09:34 | PN ---
DATE: 02/26/2019 SUBJECTIVE: The patient is stable. No events overnight. No fever, chills, nausea or vomiting. OBJECTIVE: VITAL SIGNS: Blood pressure is 89/52, respirations 20, pulse 67, temperature 98.1. HEENT: Head is normocephalic. NECK: Supple. HEART: Regular rate. LUNGS: Shows diminished breath sounds at the base. ABDOMEN: Soft, nontender to palpation without rebound or guarding. DERMATOLOGIC: no rashes. MUSCULOSKELETAL: No joint effusion. NEUROLOGIC: No change in exam. MEDICATIONS: Reviewed. LABORATORY DATA: Reviewed. ASSESSMENT AND PLAN: 1. Nonoliguric acute kidney injury. Renal ultrasound shows no evidence of obstruction. At this poi nt, continue current treatment plan, continue IV hydration, continue supportive care and renally dose all medications. 2. Anemia. Monitor hemoglobin and hematocrit levels. 3. Mineral bone disorder. Monitor calcium and phosphorus levels. 4. Non-obstructive renal calculi. Continue to monitor. 5. Dyspnea. VQ scan has been ordered. Continue to monitor. 6. History of stage IV colon cancer. Followup with Hematology/Oncology. 7. Hypernatremia. Resolved. Dictated By: ODALYS GONG DO NR/NTS Conf#: [id number] DID#: [id number] CC: ODALYS GONG DO; MARQUISE MARQUEZ;*EndCC*
--- NOTE | 2019-02-26 10:59 | PN ---
Date/Time of Note Date/Time of Note DATE: 02/26/19 TIME: 10:56 Assessment/Plan VTE Prophylaxis Risk score (from Ns)>0 risk: 2 SCD applied (from Ns): Yes Pharmacological prophylaxis: NA/contraindicated Pharm contraindication: anticoag not tolerated Lines/Catheters IV Catheter Type (from Nrsg): PICC Line Central line still needed: Yes Urinary Cath still in place: No Assessment/Plan Assessment/Plan 68-year-old male coming in with decreased p.o. intake, dehydration, and shortness of breath and nausea for 1 week with signs of renal insufficiency with a prior history of colon cancer, stage IV with ileostomy. 1. Shortness of breath and weakness and decreased p.o. intake-slowly improving, again, likely secondary to patient's renal insufficiency: creatinine is trending down. Seen by renal team. -Continue for now IV fluid hydration, cautious use of opiate medications can slightly low blood pressure but heart rate is been stable. -Follow-up results of VQ scan: because of shortness of breath, there is a concern of possible PE -Follow further recommendations from renal team -Also awaiting consult from hematology oncology team has been treating patient as an outpatient for his colon cancer 2. History of stage IV colon cancer. Again, follow-up further recommendations from hematology/oncology consult: They have been treating him as an outpatient with chemotherapy and radiation -Monitor drainage from ileostomy bag 3. History of Iliac DVT - Eliquis held on admission due to MARCELL. Despite concern for PE, no other anticoagulation started. - Anticipate Cr will have improved tomorrow to allow us to resume Eliquis. 4. Gastrointestinal prophylaxis. PPI. Result Diagram: 02/26/19 0532 02/26/19 0532 Subjective 24 Hr Interval Summary Free Text/Dictation No acute overnight events. Patient feeling well. Ambulated 500 ft on level ground and also did stairs with PT. Exam/Review of Systems Exam Vitals Vital Signs Date Temp Pulse Resp B/P (MAP) Pulse Ox O2 O2 Flow FiO2 Time Delivery Rate 02/26/19 68 08:20 02/26/19 98.1 20 89/52 (64) 96 07:32 02/26/19 Room Air 03:50 Intake and Output 02/25/19 02/25/19 02/26/19 1515:00 23:00 07:00 IntakeIntake Total 600 ml 1480 ml OutputOutput Total 100 ml 250 ml BalanceBalance -100 ml 600 ml 1230 ml Exam PHYSICAL EXAMINATION: GENERAL: lying in bed, appears somewhat cachectic, and ill-appearing but answering questions appropriately. HEENT: Pupils equal, round, react to light. Extraocular muscles intact. NECK: Supple, no thyromegaly. LUNGS: Clear to auscultation bilaterally. CARDIOVASCULAR: S1, S2 heard. No rubs or gallops. ABDOMEN: Soft, nontender, nondistended. Normal bowel sounds. No rebound or guarding. Ileostomy bag in place. MUSCULOSKELETAL: He has a left upper extremity PICC line in place that appears clean, dry and intact, otherwise no lower extremity edema bilaterally. Results Results 24hrs Laboratory Tests Test 02/26/19 05:32 White Blood Count 3.9 #L Red Blood Count 4.08 L Hemoglobin 12.1 L Hematocrit 35.3 L Mean Corpuscular Volume 86.5 Mean Corpuscular Hemoglobin 29.7 Mean Corpuscular Hemoglobin Concent 34.3 Red Cell Distribution Width 15.3 H Platelet Count 188 Mean Platelet Volume 9.0 Immature Granulocytes % 0.800 H Neutrophils % 65.4 Lymphocytes % 11.9 L Monocytes % 18.3 H Eosinophils % 3.1 Basophils % 0.5 Nucleated Red Blood Cells % 0.0 Immature Granulocytes # 0.030 Neutrophils # 2.5 Lymphocytes # 0.5 L Monocytes # 0.7 Eosinophils # 0.1 Basophils # 0.0 Nucleated Red Blood Cells # 0.0 Erythrocyte Sedimentation Rate 26 H Sodium Level 138 Potassium Level 3.6 Chloride Level 104 Carbon Dioxide Level 22 Anion Gap 12 Blood Urea Nitrogen 53 #H Creatinine 1.66 H Est Glomerular Filtrat Rate mL/min 41 L Glucose Level 110 Calcium Level 8.4 Phosphorus Level 3.1 Magnesium Level 2.0 Total Bilirubin 0.4 Direct Bilirubin 0.00 Indirect Bilirubin 0.4 Aspartate Amino Transf (AST/SGOT) 19 Alanine Aminotransferase (ALT/SGPT) 18 Alkaline Phosphatase 116 Total Protein 6.7 # Albumin 3.5 # Globulin 3.20 Albumin/Globulin Ratio 1.09 Medications Medication Current Medications IV Flush (NS 3 ml) 3 ml PER PROTOCOL IV ; Start 02/24/19 at 16:30 Ondansetron HCl (Zofran Inj) 4 mg Q6H PRN IV NAUSEA/VOMITING Last administered on 02/25/19at 20:55; Admin Dose 4 MG; Start 02/24/19 at 16:30 Acetaminophen (Tylenol Tab) 650 mg Q6H PRN PO .PAIN 1-3 OR TEMP; Start 02/24/19 at 16:30 Acetaminophen/ Hydrocodone Bitart ([place] (5/325)) 1 tab Q6H PRN PO .MOD PAIN 4- 6 Last administered on 02/26/19 05:37; Admin Dose 1 TAB; Start 02/24/19 at 16:30 Docusate Sodium (Colace) 100 mg Q12H PRN PO .CONSTIPATION; Start 02/24/19 at 16:30 Magnesium Hydroxide (Milk Of Mag) 30 ml DAILY PRN PO .CONSTIPATION; Start 02/24/19 at 16:30 Famotidine (Pepcid Iv) 20 mg DAILY IV Last administered on 02/26/19 08:49; Admin Dose 20 MG; Start 02/24/19 at 17:30 Lorazepam (Ativan) 0.5 mg Q6H PRN IV ANXIETY Last administered on 02/24/19at 23:04; Admin Dose 0.5 MG; Start 02/24/19 at 16:30 Sodium Chloride 1,000 ml @ 125 mls/hr Q8H IV Last administered on 02/26/19 04:41; Admin Dose 125 MLS/HR; Start 02/24/19 at 16:16 Albuterol/ Ipratropium (Duoneb) 3 ml Q4H RESP THERAPY PRN HHN SHORTNESS OF BREATH; Start 02/24/19 at 16:30 Hydralazine HCl (Apresoline) 10 mg Q6H PRN IV ELEVATED BLOOD PRESSURE; Start 02/24/19 at 16:30 Nitroglycerin (Nitroglycerin (Sl Tab) 0.4 Mg) 1 tab Q5M PRN SL ANGINA; Start 02/24/19 at 16:30 Trazodone HCl (Desyrel) 50 mg QHS PO Last administered on 02/25/19at 20:54; Admin Dose 50 MG; Start 02/24/19 at 21:00 Levofloxacin/ Dextrose 100 ml @ 100 mls/hr Q48H IVPB ; Start 02/26/19 at 17:00 Tamsulosin HCl (Flomax) 0.4 mg HS PO Last administered on 6/23/19at 20:54; Admin Dose 0.4 MG; Start 02/24/19 at 22:00 Morphine Sulfate (Ms Contin (Er)) 60 mg BID PO Last administered on 02/26/19at 08:49; Admin Dose 60 MG; Start 02/25/19 at 13:00 SHALA ESTES MD Feb 26, 2019 10:59
[2019-02-26] MEDS: ONDANSETRON 4 MG INJ IV PRN (12:39)
--- NOTE | 2019-02-26 13:11 | CONS ---
Assessment/Plan Assessment/Plan Hospital Course (Demo Recall) # Stage IV rectal cancer with mets to the liver s/p resection at [facility] -had Cycle 1 XELOX + avastin on 01/17/19, cycle 2 was delayed due to insurance issues and then development of clinical decline and renali failure, now holding chemotherapy for now and wait until patient's renal function improves. he had labs as oupt in 01/23 and 02/05 and that showed his Cr to be stable around 1.22 -CT scan shows some bronchiectasis but no evidence of recurrent cancer. -Counts are stable which argues against chemo toxicity. -Dr. Ordonez will plan on when to give the next chemotherapy when patient stable. # Renal failure -Appreciate nephrology recs. -Creatinine improving with fluids. -No hydroureters noted on US, but PET scan shows hydroureter? . Consultation Date/Type/Reason Admit Date/Time Feb 24, 2019 at 16:31 Initial Consult Date 02/25/19 Date/Time of Note DATE: 02/26/19 TIME: 13:11 24 HR Interval Summary Free Text/Dictation feeling better CR improved with hydration pt off of floor getting V/Q Exam/Review of Systems Exam Vitals Vital Signs Date Temp Pulse Resp B/P (MAP) Pulse Ox O2 O2 Flow FiO2 Time Delivery Rate 02/26/19 97.5 67 20 86/50 (62) 100 11:12 02/26/19 Room Air 03:50 Intake and Output 02/25/19 02/25/19 02/26/19 1515:00 23:00 07:00 IntakeIntake Total 600 ml 1480 ml OutputOutput Total 100 ml 250 ml BalanceBalance -100 ml 600 ml 1230 ml Results Result Diagram: 02/26/19 0532 02/26/19 0532 Results 24hrs Laboratory Tests Test 02/26/19 05:32 White Blood Count 3.9 #L Red Blood Count 4.08 L Hemoglobin 12.1 L Hematocrit 35.3 L Mean Corpuscular Volume 86.5 Mean Corpuscular Hemoglobin 29.7 Mean Corpuscular Hemoglobin Concent 34.3 Red Cell Distribution Width 15.3 H Platelet Count 188 Mean Platelet Volume 9.0 Immature Granulocytes % 0.800 H Neutrophils % 65.4 Lymphocytes % 11.9 L Monocytes % 18.3 H Eosinophils % 3.1 Basophils % 0.5 Nucleated Red Blood Cells % 0.0 Immature Granulocytes # 0.030 Neutrophils # 2.5 Lymphocytes # 0.5 L Monocytes # 0.7 Eosinophils # 0.1 Basophils # 0.0 Nucleated Red Blood Cells # 0.0 Erythrocyte Sedimentation Rate 26 H Sodium Level 138 Potassium Level 3.6 Chloride Level 104 Carbon Dioxide Level 22 Anion Gap 12 Blood Urea Nitrogen 53 #H Creatinine 1.66 H Est Glomerular Filtrat Rate mL/min 41 L Glucose Level 110 Calcium Level 8.4 Phosphorus Level 3.1 Magnesium Level 2.0 Total Bilirubin 0.4 Direct Bilirubin 0.00 Indirect Bilirubin 0.4 Aspartate Amino Transf (AST/SGOT) 19 Alanine Aminotransferase (ALT/SGPT) 18 Alkaline Phosphatase 116 Total Protein 6.7 # Albumin 3.5 # Globulin 3.20 Albumin/Globulin Ratio 1.09 Medications Medication Current Medications IV Flush (NS 3 ml) 3 ml PER PROTOCOL IV ; Start 02/24/19 at 16:30 Ondansetron HCl (Zofran Inj) 4 mg Q6H PRN IV NAUSEA/VOMITING Last administered on 02/26/19at 12:39; Admin Dose 4 MG; Start 02/24/19 at 16:30 Acetaminophen (Tylenol Tab) 650 mg Q6H PRN PO .PAIN 1-3 OR TEMP; Start 02/24/19 at 16:30 Acetaminophen/ Hydrocodone Bitart ([place] (5/325)) 1 tab Q6H PRN PO .MOD PAIN 4- 6 Last administered on 02/26/19at 05:37; Admin Dose 1 TAB; Start 02/24/19 at 16:30 Docusate Sodium (Colace) 100 mg Q12H PRN PO .CONSTIPATION; Start 02/24/19 at 16:30 Magnesium Hydroxide (Milk Of Mag) 30 ml DAILY PRN PO .CONSTIPATION; Start 02/24/19 at 16:30 Famotidine (Pepcid Iv) 20 mg DAILY IV Last administered on 02/26/19at 08:49; Admin Dose 20 MG; Start 02/24/19 at 17:30 Lorazepam (Ativan) 0.5 mg Q6H PRN IV ANXIETY Last administered on 02/24/19at 23:04; Admin Dose 0.5 MG; Start 02/24/19 at 16:30 Sodium Chloride 1,000 ml @ 125 mls/hr Q8H IV Last administered on 02/26/19at 04:41; Admin Dose 125 MLS/HR; Start 02/24/19 at 16:16 Albuterol/ Ipratropium (Duoneb) 3 ml Q4H RESP THERAPY PRN HHN SHORTNESS OF BREATH; Start 02/24/19 at 16:30 Hydralazine HCl (Apresoline) 10 mg Q6H PRN IV ELEVATED BLOOD PRESSURE; Start 02/24/19 at 16:30 Nitroglycerin (Nitroglycerin (Sl Tab) 0.4 Mg) 1 tab Q5M PRN SL ANGINA; Start 02/24/19 at 16:30 Trazodone HCl (Desyrel) 50 mg QHS PO Last administered on 02/25/19at 20:54; Admin Dose 50 MG; Start 02/24/19 at 21:00 Levofloxacin/ Dextrose 100 ml @ 100 mls/hr Q48H IVPB ; Start 02/26/19 at 17:00 Tamsulosin HCl (Flomax) 0.4 mg HS PO Last administered on 02/25/19at 20:54; Admin Dose 0.4 MG; Start 02/24/19 at 22:00 Morphine Sulfate (Ms Contin (Er)) 60 mg BID PO Last administered on 02/26/19 08:49; Admin Dose 60 MG; Start 02/25/19 at 13:00 RUDY ORDONEZ Feb 26, 2019 13:11
[2019-02-26] MEDS: CALCIUM CARBONATE 500 MG CHEW TAB PO PRN ×2 (15:45→23:19)
[2019-02-26] MEDS: LEVOFLOXACIN 500MG/D5W (PMX) 100 ML IVPB SCH (16:37)
[2019-02-26] MEDS: TAMSULOSIN (SR) 0.4 MG CAP PO SCH (20:06)
[2019-02-26] MEDS: traZODone 50 MG TAB PO SCH (20:06)
[2019-02-27] VITALS (11 sets, daily range): BP systolic 91–118; BP diastolic 50–61; PULSE 69–98; RESP 17–20
[2019-02-27] MEDS: SOD CHLORIDE 0.9% 1,000 ML IV SCH (02:14)
[2019-02-27] MEDS: CALCIUM CARBONATE 500 MG CHEW TAB PO PRN (02:31)
[2019-02-27] MEDS: HYDROCODONE/APAP (5/325) TAB PO PRN ×2 (04:09→11:22)
[2019-02-27] MEDS: morphine (ER) 30 MG TAB PO SCH ×2 (08:25→20:20)
[2019-02-27] MEDS: FAMOTIDINE 20 MG INJ IV SCH (08:26)
--- NOTE | 2019-02-27 09:23 | PN ---
DATE: 02/27/2019 SUBJECTIVE: The patient is stable, no events overnight. OBJECTIVE: VITAL SIGNS: Blood pressure is 108/58, pulse 75, respirations 20, temperature 97.6. HEENT: Head is normocephalic. NECK: Supple. HEART: Regular rate. LUNGS: Show diminished breath sounds at the base. ABDOMEN: Soft, nontender to palpation without rebound or guarding. EXTREMITIES: Negative for clubbing, cyanosis, no edema. DERMATOLOGIC: No rashes. MUSCULOSKELETAL: No joint effusion. NEUROLOGIC: No change in exam. MEDICATIONS: Reviewed. LABORATORY DATA: Reviewed. IMAGING STUDIES: Reviewed. ASSESSMENT AND PLAN: 1. Nonoliguric acute kidney injury. Etiology is secondary to volume depletion. The patient's renal function is improved. We will discontinue IV fluids and monitor closely. 2. Anemia. Monitor hemoglobin and hematocrit levels. 3. Mineral bone disorder, monitor calcium and phosphorus levels. 4. Nonobstructive renal calculi. Continue to monitor. 5. Dyspnea, improved. The patient's VQ scan showed low probability for pulmonary embolism. 6. History of stage IV colon cancer. Continue to monitor. Follow up with hematology/oncology. 7. Hypernatremia, resolved. Dictated By: ODALYS GONG DO NR/NTS Conf#: [id number] DID#: [id number] CC: MARQUISE MARQUEZ; ODALYS GONG DO; SHALA ESTES MD;*End*
[2019-02-27] MEDS: APIXABAN 5 MG TABLET PO SCH ×2 (12:14→20:19)
--- NOTE | 2019-02-27 16:40 | PN ---
Date/Time of Note Date/Time of Note DATE: 02/27/19 TIME: 16:34 Assessment/Plan VTE Prophylaxis Risk score (from Ns)>0 risk: 2 SCD applied (from Ns): Yes Pharmacological prophylaxis: apixaban Lines/Catheters IV Catheter Type (from [facility]): PICC Line Central line still needed: Yes Urinary Cath still in place: No Assessment/Plan Assessment/Plan 68-year-old male coming in with decreased p.o. intake, dehydration, and shortness of breath and nausea for 1 week with signs of renal insufficiency with a prior history of colon cancer, stage IV with ileostomy. 1. Shortness of breath and weakness and decreased p.o. intake -Continue for now IV fluid hydration - Poor appetite. - VQ scan negative for PE - Now resolving. 2. History of stage IV colon cancer. - Outpatient chemo. 3. History of Iliac DVT - Eliquis held on admission due to MARCELL. Despite concern for PE, no other anticoagulation started. - Resumed eliquis today. 4. Gastrointestinal prophylaxis. PPI. Dispo: Anticipate discharge home in 24-48 hours. Patient will be staying with his sister and brother in law. Result Diagram: 02/27/19 0653 02/27/19 0653 Subjective 24 Hr Interval Summary Free Text/Dictation No acute overnight events. Patient feeling well. Normal output from ileostomy. Ambulating with PT. Exam/Review of Systems Exam Vitals Vital Signs Date Temp Pulse Resp B/P (MAP) Pulse Ox O2 O2 Flow FiO2 Time Delivery Rate 02/27/19 98.4 87 20 118/61 96 15:18 (80) 02/26/19 Room Air 03:50 Intake and Output 02/26/19 02/26/19 02/27/19 1515:00 23:00 07:00 IntakeIntake Total 2425 ml 240 ml OutputOutput Total 750 ml 300 ml BalanceBalance 1675 ml -60 ml Exam PHYSICAL EXAMINATION: GENERAL: lying in bed, appears somewhat cachectic, and ill-appearing but answering questions appropriately. HEENT: Pupils equal, round, react to light. Extraocular muscles intact. NECK: Supple, no thyromegaly. LUNGS: Clear to auscultation bilaterally. CARDIOVASCULAR: S1, S2 heard. No rubs or gallops. ABDOMEN: Soft, nontender, nondistended. Normal bowel sounds. No rebound or guarding. Ileostomy bag in place. MUSCULOSKELETAL: He has a left upper extremity PICC line in place that appears clean, dry and intact, otherwise no lower extremity edema bilaterally. Results Results 24hrs Laboratory Tests Test 02/27/19 06:53 White Blood Count 4.4 L Red Blood Count 3.19 #L Hemoglobin 9.4 #L Hematocrit 28.8 L Mean Corpuscular Volume 90.3 Mean Corpuscular Hemoglobin 29.5 Mean Corpuscular Hemoglobin Concent 32.6 Red Cell Distribution Width 15.2 H Platelet Count 171 Mean Platelet Volume 8.6 Immature Granulocytes % 1.600 H Neutrophils % 64.0 Lymphocytes % 12.7 L Monocytes % 19.0 H Eosinophils % 2.5 Basophils % 0.2 Nucleated Red Blood Cells % 0.0 Immature Granulocytes # 0.070 H Neutrophils # 2.8 Lymphocytes # 0.6 L Monocytes # 0.8 Eosinophils # 0.1 Basophils # 0.0 Nucleated Red Blood Cells # 0.0 Sodium Level 144 Potassium Level 3.5 Chloride Level 116 H Carbon Dioxide Level 20 L Anion Gap 8 Blood Urea Nitrogen 22 #H Creatinine 1.02 Est Glomerular Filtrat Rate mL/min > 60 Glucose Level 96 Calcium Level 7.2 L Medications Medication Current Medications IV Flush (NS 3 ml) 3 ml PER PROTOCOL IV ; Start 02/24/19 at 16:30 Ondansetron HCl (Zofran Inj) 4 mg Q6H PRN IV NAUSEA/VOMITING Last administered on 02/26/19at 12:39; Admin Dose 4 MG; Start 02/24/19 at 16:30 Acetaminophen (Tylenol Tab) 650 mg Q6H PRN PO .PAIN 1-3 OR TEMP Last administered on 02/27/19at 12:07; Admin Dose 650 MG; Start 02/24/19 at 16:30 Acetaminophen/ Hydrocodone Bitart ([place] (5/325)) 1 tab Q6H PRN PO .MOD PAIN 4- 6 Last administered on 02/27/19at 11:22; Admin Dose 1 TAB; Start 02/24/19 at 16:30 Docusate Sodium (Colace) 100 mg Q12H PRN PO .CONSTIPATION; Start 02/24/19 at 16:30 Magnesium Hydroxide (Milk Of Mag) 30 ml DAILY PRN PO .CONSTIPATION; Start 02/24/19 at 16:30 Famotidine (Pepcid Iv) 20 mg DAILY IV Last administered on 02/27/19 08:26; Admin Dose 20 MG; Start 02/24/19 at 17:30 Lorazepam (Ativan) 0.5 mg Q6H PRN IV ANXIETY Last administered on 02/24/19 23:04; Admin Dose 0.5 MG; Start 02/24/19 at 16:30 Albuterol/ Ipratropium (Duoneb) 3 ml Q4H RESP THERAPY PRN HHN SHORTNESS OF BREATH; Start 02/24/19 at 16:30 Hydralazine HCl (Apresoline) 10 mg Q6H PRN IV ELEVATED BLOOD PRESSURE; Start 02/24/19 at 16:30 Nitroglycerin (Nitroglycerin (Sl Tab) 0.4 Mg) 1 tab Q5M PRN SL ANGINA; Start 02/24/19 at 16:30 Trazodone HCl (Desyrel) 50 mg QHS PO Last administered on 02/26/19 20:06; Admin Dose 50 MG; Start 02/24/19 at 21:00 Levofloxacin/ Dextrose 100 ml @ 100 mls/hr Q48H IVPB Last administered on 02/26/19 16:37; Admin Dose 100 MLS/HR; Start 02/26/19 at 17:00 Tamsulosin HCl (Flomax) 0.4 mg HS PO Last administered on 02/26/19 20:06; Admin Dose 0.4 MG; Start 02/24/19 at 22:00 Morphine Sulfate (Ms Contin (Er)) 60 mg BID PO Last administered on 02/27/19 08:25; Admin Dose 60 MG; Start 02/25/19 at 13:00 Calcium Carbonate (Tums) 500 mg PC MEALS PRN PO dyspepsia Last administered on 02/27/19 02:31; Admin Dose 500 MG; Start 02/26/19 at 16:00 Apixaban (Eliquis) 5 mg BID PO Last administered on 02/27/19 12:14; Admin Dose 5 MG; Start 02/27/19 at 12:00 SHALA ESTES MD Feb 27, 2019 16:40
[2019-02-27] MEDS: traZODone 50 MG TAB PO SCH (20:19)
[2019-02-27] MEDS: TAMSULOSIN (SR) 0.4 MG CAP PO SCH (20:19)
[2019-02-28] VITALS (11 sets, daily range): BP systolic 98–135; BP diastolic 54–75; PULSE 66–88; RESP 18–20
[2019-02-28] MEDS: LORAZEPAM 2 MG INJ IV PRN ×2 (00:20→23:56)
[2019-02-28] MEDS: ONDANSETRON 4 MG INJ IV PRN ×2 (00:21→10:16)
--- NOTE | 2019-02-28 08:43 | PN ---
DATE: 02/28/2019 SUBJECTIVE: The patient is stable, no events overnight. OBJECTIVE: VITAL SIGNS: Blood pressure is 106/56, respiratory rate 20, pulse 85, temperature 97.9. HEENT: Head is normocephalic. NECK: Supple. HEART: Regular rate. LUNGS: Show diminished breath sounds at the base. ABDOMEN: Soft, nontender to palpation without rebound or guarding. EXTREMITIES: Negative for clubbing, cyanosis, no edema. DERMATOLOGIC: No rashes. MUSCULOSKELETAL: No joint effusion. NEUROLOGIC: No change in exam. MEDICATIONS: The patient's medications have been reviewed. LABORATORY DATA: Has been reviewed. IMAGING STUDIES: Has been reviewed. ASSESSMENT AND PLAN: 1. Nonoliguric acute kidney injury. Etiology is secondary to volume depletion. Renal function is i mproved. Continue current treatment plan. Continue supportive care, renally dose all meds. 2. Anemia. Monitor hemoglobin and hematocrit levels. 3. Mineral bone disorder, monitor calcium and phosphorus levels. 4. Shortness of breath. The patient's VQ scan showed low probability for PE. Continue to monitor. 5. Stage IV colon cancer. Continue to monitor. Follow up with hematology. 6. Hyponatremia, resolved. Dictated By: ODALYS GONG DO NR/NTS Conf#: [id number] DID#: [id number] CC: SHALA ESTES MD; MARQUISE MARQUEZ;*EndCC*
[2019-02-28] MEDS: FAMOTIDINE 20 MG INJ IV SCH (08:55)
[2019-02-28] MEDS: morphine (ER) 30 MG TAB PO SCH ×2 (08:55→22:01)
[2019-02-28] MEDS: APIXABAN 5 MG TABLET PO SCH ×2 (08:55→20:44)
[2019-02-28] MEDS ORDERED: TRAZ-111 PO (12:08)
[2019-02-28] MEDS ORDERED: MORP60TA37 PO (12:08)
[2019-02-28] MEDS ORDERED: HYDR-2457 PO (12:08)
[2019-02-28] MEDS ORDERED: APIX5TAB PO (12:08)
--- NOTE | 2019-02-28 12:10 | PDOCDIS ---
Discharge Instructions DIAGNOSIS Discharge Diagnosis Dehydration Acute kidney injury CONDITION [id number] Patient Condition: [id number] Fair HOME CARE INSTRUCTIONS: [id number] Diet Instructions: [id number] Regular ACTIVITY: [id number] Activity Restrictions: [id number] No Restrictions FOLLOW UP/APPOINTMENTS Follow-up Plan 1. Continue all medications as prescribed. 2. See Dr. Houser in clinic as scheduled. 3. Return to the emergency room if you are unable to keep down foods or liquids SHALA ESTES MD Feb 28, 2019 12:10
--- NOTE | 2019-02-28 14:29 | CONS ---
Assessment/Plan Assessment/Plan Hospital Course (Demo Recall) # Stage IV rectal cancer with mets to the liver s/p resection at [facility] -had Cycle 1 XELOX + avastin on 01/17/19, cycle 2 was delayed due to insurance issues and then development of clinical decline and renal failure, now holding chemotherapy for now and wait until patient's renal function improves. he had labs as oupt in 01/23 and 02/05 and that showed his Cr to be stable around 1.22 -CT scan shows some bronchiectasis but no evidence of recurrent cancer. -Counts are stable which argues against chemo toxicity. -hold chemo for additional week plan on possible chemo March 09--will dose reduce oxaliplatin and xeloda for improved tolerability by 30% check labs next week as outpt CBC, CMP # Renal failure, improved to baseline with hydration -Appreciate nephrology recs. -No hydroureters noted on US ok for d/c from heme/onc perspective .with f/u in my office next tuesday (do labs on tuesday) Consultation Date/Type/Reason Admit Date/Time Feb 24, 2019 at 16:31 Initial Consult Date 02/25/19 Date/Time of Note DATE: 02/28/19 TIME: 14:25 24 HR Interval Summary Free Text/Dictation feeling much better Exam/Review of Systems Exam Vitals Vital Signs Date Temp Pulse Resp B/P (MAP) Pulse Ox O2 O2 Flow FiO2 Time Delivery Rate 02/28/19 98.7 66 18 100/55 96 Room Air 11:37 (70) Intake and Output 02/27/19 02/27/19 02/28/19 1515:00 23:00 07:00 IntakeIntake Total 700 ml 350 ml 1000 ml OutputOutput Total 700 ml BalanceBalance 700 ml -350 ml 1000 ml Constitutional: alert, oriented, frail Head: normocephalic, atraumatic Eyes: nl conjunctiva, EOMI, nl lids, nl sclera, PERRL ENMT: nl external ears & nose, nl lips & teeth, nl nasal mucosa & septum Neurological: TILE CLASSIFIER II-XII intact, nl mental status, nl speech, nl strength Skin: nl turgor; No rash or lesions Results Result Diagram: 02/28/19 0549 02/28/19 0549 Results 24hrs Laboratory Tests Test 02/27/19 17:11 02/28/19 05:49 White Blood Count 4.1 L 4.9 Red Blood Count 3.20 L 3.32 L Hemoglobin 9.6 L 10.0 L Hematocrit 29.2 L 29.2 L Mean Corpuscular Volume 91.3 88.0 Mean Corpuscular Hemoglobin 30.0 30.1 Mean Corpuscular Hemoglobin Concent 32.9 34.2 Red Cell Distribution Width 15.4 H 15.7 H Platelet Count 157 169 Mean Platelet Volume 8.7 8.9 Immature Granulocytes % 1.500 H 0.800 H Neutrophils % 68.9 68.0 Lymphocytes % 9.5 L 9.0 L Monocytes % 18.0 H 19.6 H Eosinophils % 1.9 2.2 Basophils % 0.2 0.4 Nucleated Red Blood Cells % 0.0 0.0 Immature Granulocytes # 0.060 H 0.040 H Neutrophils # 2.8 3.3 Lymphocytes # 0.4 L 0.4 L Monocytes # 0.7 1.0 H Eosinophils # 0.1 0.1 Basophils # 0.0 0.0 Nucleated Red Blood Cells # 0.0 0.0 Sodium Level 143 Potassium Level 3.9 Chloride Level 116 H Carbon Dioxide Level 21 Anion Gap 6 Blood Urea Nitrogen 19 Creatinine 1.08 Est Glomerular Filtrat Rate mL/min > 60 Glucose Level 113 Calcium Level 8.1 L Medications Medication Current Medications IV Flush (NS 3 ml) 3 ml PER PROTOCOL IV ; Start 02/24/19 at 16:30 Ondansetron HCl (Zofran Inj) 4 mg Q6H PRN IV NAUSEA/VOMITING Last administered on 02/28/19at 10:16; Admin Dose 4 MG; Start 02/24/19 at 16:30 Acetaminophen (Tylenol Tab) 650 mg Q6H PRN PO .PAIN 1-3 OR TEMP Last administered on 02/27/19 12:07; Admin Dose 650 MG; Start 02/24/19 at 16:30 Acetaminophen/ Hydrocodone Bitart ([place] (5/325)) 1 tab Q6H PRN PO .MOD PAIN 4- 6 Last administered on 02/27/19 11:22; Admin Dose 1 TAB; Start 02/24/19 at 16:30 Docusate Sodium (Colace) 100 mg Q12H PRN PO .CONSTIPATION; Start 02/24/19 at 16:30 Magnesium Hydroxide (Milk Of Mag) 30 ml DAILY PRN PO .CONSTIPATION; Start 02/24/19 at 16:30 Famotidine (Pepcid Iv) 20 mg DAILY IV Last administered on 02/28/19 08:55; Admin Dose 20 MG; Start 02/24/19 at 17:30 Lorazepam (Ativan) 0.5 mg Q6H PRN IV ANXIETY Last administered on 02/28/19 00:20; Admin Dose 0.5 MG; Start 02/24/19 at 16:30 Albuterol/ Ipratropium (Duoneb) 3 ml Q4H RESP THERAPY PRN HHN SHORTNESS OF BREATH; Start 02/24/19 at 16:30 Hydralazine HCl (Apresoline) 10 mg Q6H PRN IV ELEVATED BLOOD PRESSURE; Start 02/24/19 at 16:30 Nitroglycerin (Nitroglycerin (Sl Tab) 0.4 Mg) 1 tab Q5M PRN SL ANGINA; Start 02/24/19 at 16:30 Trazodone HCl (Desyrel) 50 mg QHS PO Last administered on 02/27/19 20:19; Admin Dose 50 MG; Start 02/24/19 at 21:00 Levofloxacin/ Dextrose 100 ml @ 100 mls/hr Q48H IVPB Last administered on 02/26/19 16:37; Admin Dose 100 MLS/HR; Start 02/26/19 at 17:00 Tamsulosin HCl (Flomax) 0.4 mg HS PO Last administered on 02/27/19 20:19; Admin Dose 0.4 MG; Start 02/24/19 at 22:00 Morphine Sulfate (Ms Contin (Er)) 60 mg BID PO Last administered on 02/28/19 08:55; Admin Dose 60 MG; Start 02/25/19 at 13:00 Calcium Carbonate (Tums) 500 mg PC MEALS PRN PO dyspepsia Last administered on 02/27/19 02:31; Admin Dose 500 MG; Start 02/26/19 at 16:00 Apixaban (Eliquis) 5 mg BID PO Last administered on 02/28/19 08:55; Admin Dose 5 MG; Start 02/27/19 at 12:00 RUDY ORDONEZ Feb 28, 2019 14:28
[2019-02-28] MEDS: LEVOFLOXACIN 500MG/D5W (PMX) 100 ML IVPB SCH (17:06)
--- NOTE | 2019-02-28 19:48 | PN ---
Date/Time of Note Date/Time of Note DATE: 02/28/19 TIME: 19:47 Assessment/Plan VTE Prophylaxis Risk score (from Ns)>0 risk: 4 SCD applied (from Ns): No SCD contraindicated: other (no) Pharmacological prophylaxis: apixaban Lines/Catheters IV Catheter Type (from [facility]): PICC Line Central line still needed: Yes Urinary Cath still in place: No Assessment/Plan Assessment/Plan 68-year-old male coming in with decreased p.o. intake, dehydration, and shortness of breath and nausea for 1 week with signs of renal insufficiency with a prior history of colon cancer, stage IV with ileostomy. 1. Shortness of breath and weakness and decreased p.o. intake -Continue for now IV fluid hydration - Poor appetite. - VQ scan negative for PE - Now resolving. 2. History of stage IV colon cancer. - Outpatient chemo. 3. History of Iliac DVT - Eliquis held on admission due to MARCELL. Despite concern for PE, no other anticoagulation started. - Resumed eliquis today. 4. Gastrointestinal prophylaxis. PPI. Dispo: Anticipate discharge home tomorrow. Patient will be staying with his sister and brother in law. Result Diagram: 02/28/19 0549 02/28/19 0549 Subjective 24 Hr Interval Summary Free Text/Dictation Patient feeling better today Tolerating diet. Not ambulating much yet. Requested to stay one more night. Exam/Review of Systems Exam Vitals Vital Signs Date Temp Pulse Resp B/P (MAP) Pulse Ox O2 O2 Flow FiO2 Time Delivery Rate 02/28/19 98.3 86 18 98/54 (69) 98 Room Air 19:23 Intake and Output 02/27/19 02/27/19 02/28/19 1515:00 23:00 07:00 IntakeIntake Total 700 ml 350 ml 1000 ml OutputOutput Total 700 ml BalanceBalance 700 ml -350 ml 1000 ml Exam PHYSICAL EXAMINATION: GENERAL: lying in bed, appears somewhat cachectic, and ill-appearing but answering questions appropriately. HEENT: Pupils equal, round, react to light. Extraocular muscles intact. NECK: Supple, no thyromegaly. LUNGS: Clear to auscultation bilaterally. CARDIOVASCULAR: S1, S2 heard. No rubs or gallops. ABDOMEN: Soft, nontender, nondistended. Normal bowel sounds. No rebound or gu arding. Ileostomy bag in place. MUSCULOSKELETAL: He has a left upper extremity PICC line in place that appears clean, dry and intact, otherwise no lower extremity edema bilaterally. Results Results 24hrs Laboratory Tests Test 02/28/19 05:49 White Blood Count 4.9 Red Blood Count 3.32 L Hemoglobin 10.0 L Hematocrit 29.2 L Mean Corpuscular Volume 88.0 Mean Corpuscular Hemoglobin 30.1 Mean Corpuscular Hemoglobin Concent 34.2 Red Cell Distribution Width 15.7 H Platelet Count 169 Mean Platelet Volume 8.9 Immature Granulocytes % 0.800 H Neutrophils % 68.0 Lymphocytes % 9.0 L Monocytes % 19.6 H Eosinophils % 2.2 Basophils % 0.4 Nucleated Red Blood Cells % 0.0 Immature Granulocytes # 0.040 H Neutrophils # 3.3 Lymphocytes # 0.4 L Monocytes # 1.0 H Eosinophils # 0.1 Basophils # 0.0 Nucleated Red Blood Cells # 0.0 Sodium Level 143 Potassium Level 3.9 Chloride Level 116 H Carbon Dioxide Level 21 Anion Gap 6 Blood Urea Nitrogen 19 Creatinine 1.08 Est Glomerular Filtrat Rate mL/min > 60 Glucose Level 113 Calcium Level 8.1 L Medications Medication Current Medications IV Flush (NS 3 ml) 3 ml PER PROTOCOL IV ; Start 02/24/19 at 16:30 Ondansetron HCl (Zofran Inj) 4 mg Q6H PRN IV NAUSEA/VOMITING Last administered on 02/28/19at 10:16; Admin Dose 4 MG; Start 02/24/19 at 16:30 Acetaminophen (Tylenol Tab) 650 mg Q6H PRN PO .PAIN 1-3 OR TEMP Last administered on 02/27/19at 12:07; Admin Dose 650 MG; Start 02/24/19 at 16:30 Acetaminophen/ Hydrocodone Bitart (Sontag (5/325)) 1 tab Q6H PRN PO .MOD PAIN 4- 6 Last administered on 02/27/19at 11:22; Admin Dose 1 TAB; Start 02/24/19 at 16:30 Docusate Sodium (Colace) 100 mg Q12H PRN PO .CONSTIPATION; Start 02/24/19 at 16:30 Magnesium Hydroxide (Milk Of Mag) 30 ml DAILY PRN PO .CONSTIPATION; Start 02/24/19 at 16:30 Famotidine (Pepcid Iv) 20 mg DAILY IV Last administered on 02/28/19 08:55; Admin Dose 20 MG; Start 02/24/19 at 17:30 Lorazepam (Ativan) 0.5 mg Q6H PRN IV ANXIETY Last administered on 02/28/19at 00 :20; Admin Dose 0.5 MG; Start 02/24/19 at 16:30 Albuterol/ Ipratropium (Duoneb) 3 ml Q4H RESP THERAPY PRN HHN SHORTNESS OF BREATH; Start 02/24/19 at 16:30 Hydralazine HCl (Apresoline) 10 mg Q6H PRN IV ELEVATED BLOOD PRESSURE; Start 02/24/19 at 16:30 Nitroglycerin (Nitroglycerin (Sl Tab) 0.4 Mg) 1 tab Q5M PRN SL ANGINA; Start 02/24/19 at 16:30 Trazodone HCl (Desyrel) 50 mg QHS PO Last administered on 02/27/19 20:19; Admin Dose 50 MG; Start 02/24/19 at 21:00 Levofloxacin/ Dextrose 100 ml @ 100 mls/hr Q48H IVPB Last administered on 02/28/19at 17:06; Admin Dose 100 MLS/HR; Start 02/26/19 at 17:00 Tamsulosin HCl (Flomax) 0.4 mg HS PO Last administered on 02/27/19 20:19; Admin Dose 0.4 MG; Start 02/24/19 at 22:00 Morphine Sulfate (Ms Contin (Er)) 60 mg BID PO Last administered on 02/28/19at 08:55; Admin Dose 60 MG; Start 02/25/19 at 13:00 Calcium Carbonate (Tums) 500 mg PC MEALS PRN PO dyspepsia Last administered on 02/27/19 02:31; Admin Dose 500 MG; Start 02/26/19 at 16:00 Apixaban (Eliquis) 5 mg BID PO Last administered on 02/28/19 08:55; Admin Dose 5 MG; Start 02/27/19 at 12:00 SHALA ESTES MD Feb 28, 2019 19:48
[2019-02-28] MEDS: TAMSULOSIN (SR) 0.4 MG CAP PO SCH (22:00)
[2019-02-28] MEDS: traZODone 50 MG TAB PO SCH (22:00)
[2019-03-01] MEDS: HYDROCODONE/APAP (5/325) TAB PO PRN (05:57)
[2019-03-01 07:23] VITALS: BP 106/57; PULSE 81; RESP 18
--- NOTE | 2019-03-01 08:54 | PN ---
DATE: 03/01/2019 SUBJECTIVE: The patient is stable. No events overnight. OBJECTIVE: VITAL SIGNS: Blood pressure is 106/57, pulse 81, respirations 18, temperature 98.3. HEENT: Head is normocephalic. NECK: Supple. HEART: Regular rate. LUNGS: Show diminished breath sounds at the base. ABDOMEN: Soft, nontender to palpation without rebound or guarding. EXTREMITIES: Negative for clubbing, cyanosis, no edema. DERMATOLOGIC: No rashes. MUSCULOSKELETAL: No joint effusion. NEUROLOGIC: No change in exam. MEDICATIONS: Reviewed. LABORATORY DATA: Reviewed. IMAGES STUDIES: Reviewed. ASSESSMENT AND PLAN: 1. Nonoliguric acute kidney injury. Etiology is secondary to volume depletion. Renal function is i mproved. Continue current treatment plan, supportive care, renally dose all medications. 2. Anemia. Continue to monitor hemoglobin and hematocrit levels. 3. Shortness of breath, etiology is unclear. The patient's VQ scan showed low probability for pulmo nary embolism. Shortness of breath has improved. Continue to monitor. 4. Stage IV colon cancer. Continue to monitor. Follow up with Hematology. 5. Hypernatremia, resolved. Dictated By: ODALYS GONG DO NR/NTS Conf#: [id number] DID#: [id number] CC: SHALA ESTES MD; MARQUISE MARQUEZ; ODALYS GONG DO;*EndCC*
[2019-03-01] MEDS: FAMOTIDINE 20 MG INJ IV SCH (09:34)
[2019-03-01] MEDS: morphine (ER) 30 MG TAB PO SCH (09:34)
[2019-03-01] MEDS: APIXABAN 5 MG TABLET PO SCH (09:34)
[2019-03-01 12:08] VITALS: BP 99/54; PULSE 77; RESP 16
--- NOTE | 2019-03-01 17:24 | DS ---
Date/Time of Note Date/Time of Note DATE: 03/01/19 TIME: 17:21 Discharge Summary Admission/Discharge Info Admit Date/Time Feb 24, 2019 at 16:31 Discharge Date/Time Mar 01, 2019 at 13:24 Discharge Diagnosis Dehydration Acute kidney injury Patient Condition: Fair Consults Dr. Houser, oncology Dr. Levy, nephrology Procedures None Hx of Present Illness CHIEF COMPLAINT: Nausea, shortness of breath, dehydration for 3 days. HISTORY OF PRESENT ILLNESS: A 68-year-old male with past medical history of stage IV colon cancer with metastasis, recent bacteremia treatment with PICC in place, per patient treat him for November until January 2019, history of ileostomy, who comes in with shortness of breath. The patient also has been having some nausea symptoms and weakness and dehydration. He has also had some voice hoarseness and decreased appetite. All the symptoms have been going on for the last few days. The patient says he last saw his hematology/oncology doctor on Tuesday in the clinic and apparently was supposed to get some labs drawn as an outpatient, but because of his weakness symptoms was unable to get those done. Per hematology/oncology team, he was also supposed to see a urology doctor because of concern of possible hydroureter on some previous scans. The patient has been status post chemotherapy, radiation treatment for this colon cancer. Presently, denies any upper or lower GI bleeding, no fevers or chills. No headaches. When he came in today, he was found with elevated creatinine of 3.74. His previous known creatinine from a year ago was 0.62. PAST MEDICAL HISTORY: As above. ALLERGIES: PENICILLIN. MEDICATIONS AT HOME: 1. Eliquis 5 mg b.i.d. 2. MS Contin 60 mg q.8 hours p.r.n. 3. Trazodone 50 mg at bedtime. PAST SURGICAL HISTORY: Again, he has had an end colostomy performed, sigmoid upper rectum resection with ileostomy in the past. SOCIAL HISTORY: Prior history of substance abuse, but denies any alcohol use, no smoking history. FAMILY HISTORY: Noncontributory. Hospital Course The patient was admitted to telemetry and given aggressive IV rehydration. Most of his symptoms, including the shortness of breath resolved. He was initially started on levofloxacin but this was discontinued as he had no signs of sepsis. Creatinine gradually improved back to normal levels. V/Q scan was done which was negative for PE. His Eliquis was restarted. The patient expressed frustration and fatigue with his cancer diagnosis and treatment and expressed interest in hospice. But would prefer to discuss with Dr. Houser later in the office. Will be discharged home where his [id number] will be taking care of him. Home Meds Active Scripts Hydrocodone Bit-Acetaminophen (Hydrocodone Bit-Acetaminophen) 10-300 Mg Tablet, 1 TAB PO Q6H PRN for PAIN, #60 TAB Prov:SHALA ESTES MD 02/28/19 Trazodone Hcl* (Trazodone Hcl*) 50 Mg Tablet, 50 MG PO QHS, #30 TAB Prov:SHALA ESTES MD 02/28/19 Morphine Sulfate* (Ms Contin*) 60 Mg Tablet.sa, 60 MG PO Q8 PRN for PAIN, #90 TAB.SA 0 Refills Prov:SHALA ESTES MD 02/28/19 Apixaban* (Eliquis*) 5 Mg Tablet, 5 MG PO BID, #60 TAB 0 Refills Prov:SHALA ESTES MD 02/28/19 Discontinued Scripts Furosemide* (Furosemide*) 20 Mg Tablet, 20 MG PO DAILY for 14 Days, #14 TAB Prov:JADEN MADDEN MD 03/03/18 Apixaban* (Eliquis*) 5 Mg Tablet, 5 MG PO BID for 60 Days, #120 TAB Prov:JADEN MADDEN MD 03/03/18 Follow-up Plan 1. Continue all medications as prescribed. 2. See Dr. Houser in clinic as scheduled. 3. Return to the emergency room if you are unable to keep down foods or liquids Primary Care Provider Esha Houser Time spent on discharge: > 30 minutes Pending Labs Laboratory Tests Test 03/01/19 05:38 03/01/19 05:39 Sodium Level 141 mmol/L (135-144) Potassium Level 4.0 mmol/L (3.5-5.1) Chloride Level 109 mmol/L (97-110) Carbon Dioxide Level 24 mmol/L (21-31) Anion Gap 8 (5-13) Blood Urea Nitrogen 16 mg/dl (7-20) Creatinine 0.94 mg/dl (0.61-1.24) Est Glomerular Filtrat > 60 mL/min (>60) Rate mL/min Glucose Level 92 mg/dl (70-220) Calcium Level 8.1 mg/dl (8.4-10.2) White Blood Count 5.7 10^3/ul (4.8-10.8) Red Blood Count 3.26 10^6/ul (4.70-6.10) Hemoglobin 9.8 g/dl (14.0-18.0) Hematocrit 29.5 % (42.0-52.0) Mean Corpuscular Volume 90.5 fl (82.0-101.0) Mean Corpuscular Hemoglobin 30.1 pg (29.0-33.0) Mean Corpuscular 33.2 g/dl (32.0-37.0) Hemoglobin Concent Red Cell Distribution Width 15.7 % (11.5-14.5) Platelet Count 165 10^3/UL (140-415) Mean Platelet Volume 8.8 fl (7.4-10.4) Immature Granulocytes % 1.200 % (0.001-0.429) Neutrophils % 68.2 % (39.0-77.0) Lymphocytes % 9.5 % (15.0-51.0) Monocytes % 17.6 % (0.0-11.0) Eosinophils % 3.0 % (0.0-7.0) Basophils % 0.5 % (0.0-2.0) Nucleated Red Blood Cells % 0.0 /100WBC (0.0-0.0) Immature Granulocytes # 0.070 10^3/ul (0.0-0.031) Neutrophils # 3.9 10^3/ul (1.6-7.5) Lymphocytes # 0.5 10^3/ul (0.8-2.9) Monocytes # 1.0 10^3/ul (0.3-0.9) Eosinophils # 0.2 10^3/ul (0.0-0.5) Basophils # 0.0 10^3/ul (0.0-0.1) Nucleated Red Blood Cells # 0.0 10^3/ul (0.0-0.0) SHALA ESTES MD Mar 01, 2019 17:24
== END 2019-03-01 13:24 | disposition home or self-care (01) | DRG 683 ==
LOC: E/R 12:49 → 6WM 16:31 → TEL 20:00
PROVIDERS: ADMIT Hospitalist; ATTEND Internal Medicine
DX: N17.9 Acute kidney failure, unspecified (principal); E44.0 Moderate protein-calorie malnutrition; C78.7 Secondary malignant neoplasm of liver and intrahepatic bile duct; C18.9 Malignant neoplasm of colon, unspecified; E87.0 Hyperosmolality and hypernatremia; Z68.20 Body mass index [BMI] 20.0-20.9, adult; Z88.0 Allergy status to penicillin; E86.0 Dehydration; D64.9 Anemia, unspecified; N20.0 Calculus of kidney; Z86.718 Personal history of other venous thrombosis and embolism; Z92.3 Personal history of irradiation; Z79.01 Long term (current) use of anticoagulants
CPT/HCPCS: 36415; 71045; 71250; 76775; 78582; 80048; 80053; 80061; 81001; 81003; 83036; 83605; 83735; 83880; 84100; 84155; 84300; 84439; 84443; 84484; 85025; 85651; 93005; 97116; 97162; 97165; 97530; A9540; J1956; J2060; J2270; J2405; J7030

== ENCOUNTER 2019-04-03 14:04 | Emergency (ER) | payer MEDICARE ==
[~2019-04-03] VITALS: Ht 154.9 cm; Wt 49.8 kg
[~2019-04-03 14:04] MED LIST changes: +ACET500C5 PO; -FURO20TA3 PO; +HYDR-2457 PO; +MORP60TA37 PO; +TRAZ-111 PO
[2019-04-03 14:08] VITALS: Ht 154.9 cm; Wt 49.8 kg
--- NOTE | 2019-04-03 15:29 | ERD ---
ER Documentation Chief Complaint Chief Complaint sorethroat runny noses x1wk, denies coughing HPI 68-year-old male with past medical history of stage IV colorectal cancer who presents with complaint of sore throat and runny nose over the past week. Patient states he is undergoing chemoradiation treatment every 3 weeks. Ask if he is had surveillance CTs with any involvement of the lung patient denies. He otherwise denies fevers, chills, shortness of breath on exertion or with inhalation, cough, chest pain, worsening dyspnea on exertion, extremity edema or pain, nausea, vomiting, diarrhea, urinary symptoms. At time of examination patient nontoxic-appearing febrile with reassuring examination. ROS All systems reviewed and are negative except as per history of present illness. Medications Home Meds Active Scripts Acetaminophen* (Tylophen*) 500 Mg Capsule, 1 CAP PO Q6H PRN for PAIN AND OR E LEVATED TEMP, #20 CAP Prov:ALVINO GAMEZ PA-C 04/03/19 Hydrocodone Bit-Acetaminophen (Hydrocodone Bit-Acetaminophen) 10-300 Mg Tablet, 1 TAB PO Q6H PRN for PAIN, #60 TAB Prov:SHALA ESTES MD 02/28/19 Trazodone Hcl* (Trazodone Hcl*) 50 Mg Tablet, 50 MG PO QHS, #30 TAB Prov:SHALA ESTES MD 02/28/19 Morphine Sulfate* (Ms Contin*) 60 Mg Tablet.sa, 60 MG PO Q8 PRN for PAIN, #90 TAB.SA 0 Refills Prov:SHALA ESTES MD 02/28/19 Apixaban* (Eliquis*) 5 Mg Tablet, 5 MG PO BID, #60 TAB 0 Refills Prov:SHALA ESTES MD 02/28/19 Allergies Allergies: Coded Allergies: Penicillins (Verified Allergy, Unknown, RASH HIVES, 02/24/19) PMhx/Soc History of Surgery: Yes (ileostomy, sigmoid upper rectum resection ) Anesthesia Reaction: Yes Hx Neurological Disorder: No Hx Respiratory Disorders: Yes (SOB) Hx Cardiac Disorders: No Hx Psychiatric Problems: No Hx Miscellaneous Medical Probl: Yes (Met Colon CA with ileostomy) Hx Alcohol Use: No Hx Substance Use: No Hx Tobacco Use: No Smoking Status: Never smoker FmHx Family History: No diabetes, No coronary disease, No other Physical Exam Vitals Vital Signs Date Temp Pulse Resp B/P (MAP) Pulse Ox O2 O2 Flow FiO2 Time Delivery Rate 04/03/19 97.6 100 19 102/62 99 14:08 (75) Physical Exam I have reviewed the triage vital signs. Const: Thin and cachectic, appears stated age Eyes: PERRL, no conjunctival injection HENT: NCAT, Neck supple without meningismus CV: RRR, Warm, well-perfused extremities, no lower extremity edema, no murmurs, no pleuritic complaints RESP: CTAB, Unlabored respiratory effort GI: soft, non-tender, non-distended, no masses MSK: No gross deformities appreciated Skin: Warm, dry. No rashes Neuro: grossly non focal Psych: Appropriate mood and affect. Procedures/MDM 68-year-old male with stage IV colorectal cancer presents with complaint of sore throat and runny nose. He is afebrile, denying cough, pleuritic type complaints. Symptoms likely represent mild case of cold/flu, upper respiratory viral illness. Based on the history, exam, and any testing done, I dont suspect any other cause emergency cause of respiratory distress, such as, but not limited to, pneumonia, pulmonary embolism, coronary syndrome, congestive heart failure, pulmonary embolism, or pneumothorax. ED course: Chest x-ray without acute finding Patient has appointment tomorrow with his oncologist Dr. Houser. DISPOSITION PLAN: We discussed follow up with the patient's primary care doctor within 24 to 48 hours. Patient counseled regarding my diagnostic impression and care plan. Prior to discharge all questions answered. Pt agrees with treatment plan and understands strict return precautions. Precautionary instructions provided including instructions to return to the ER if not improving or for any worsening or changing symptoms or concerns. Disclaimer: Inadvertent spelling and grammatical errors are likely due to EHR/dictation software use and do not reflect on the overall quality of patient care. Also, please note that the electronic time recorded on this note does not necessarily reflect the actual time of the patient encounter. Departure Diagnosis: Primary Impression: Sore throat Condition: Stable Patient Instructions: Self-Care for Sore Throats Referrals: RUDY HOUSER (PCP) Additional Instructions: Call your primary care doctor TOMORROW for an appointment during the next 2-3 days.See the doctor sooner or return here if your condition worsens before your appointment time. ALVINO GAMEZ PA-C Apr 03, 2019 15:29
[2019-04-03 16:31] VITALS: BP 102/66; PULSE 90; RESP 20
== END 2019-04-03 16:33 | disposition home or self-care (01) ==
LOC: FTE 14:04
DX: J02.9 Acute pharyngitis, unspecified (principal); R09.89 Other specified symptoms and signs involving the circulatory and respiratory systems
CPT/HCPCS: 71045